=== PATIENT | male | born 1960 | race American Indian/Alaskan Native ===

== ENCOUNTER 2022-03-18 10:54 | Inpatient (IN) | payer OTHER ==
--- NOTE | 2022-03-18 11:42 | XRay Report ---
CHEST 2 VIEWS INDICATION: weakness. COMPARISON: none FINDINGS: Support devices: None. Heart: Within normal limits. Lungs/pleura: No acute air space or interstitial disease. No pleural abnormality or pneumothorax. Additional findings: None. IMPRESSION: No acute findings. Signer Name: Tyrone Hinds Jr, MD Signed: 03/18/2022 11:38 AM Workstation Name: [id number]
--- NOTE | 2022-03-18 12:12 | Cat Scan Report ---
CT HEAD WITHOUT CONTRAST INDICATION / CLINICAL INFORMATION: uni lateral weakness. Patient fell in bathroom due to total left- sided weakness. TECHNIQUE: Axial imaging performed from the skull apex through the skull base without the use of cont rast. Sagittal and coronal reformatted images. All CT scans at this location are performed using CT dose reduction for ALARA by means of automated exposure control. COMPARISON: None available. FINDINGS: CEREBRAL PARENCHYMA: No acute parenchymal abnormality is identified. There is mild to moderate hypoat tenuation throughout the white matter consistent with chronic small vessel disease. No chronic infarc t is identified. HEMORRHAGE: None. EXTRA-AXIAL SPACES: Normal in size and morphology for the patient's age. VENTRICULAR SYSTEM: Normal in size and morphology for the patient's age. MIDLINE SHIFT OR HERNIATION: None. CEREBELLUM / BRAINSTEM: No significant abnormality. CALVARIUM: No significant abnormality. ORBITS: Normal as visualized. PARANASAL SINUSES / MASTOID AIR CELLS: Normal as visualized. SOFT TISSUES of HEAD: No significant abnormality. ADDITIONAL FINDINGS: None. IMPRESSION: No acute intracranial abnormality. Chronic white matter changes as described. Signer Name: Tyrone Hinds Jr, MD Signed: 03/18/2022 12:07 PM Workstation Name: [id number]
[2022-03-18 13:01] LABS: Hematocrit 48.8 % (35.5-45.6); Hemoglobin 15.3 gm/dl (11.8-15.2); Mean Corpuscular HGB Conc 31 % (32-34); Mean Corpuscular Volume 84 fl (84-94); Platelet Count 174 K/mm3 (140-440); Red Blood Count 5.79 M/mm3 (3.65-5.03); Red Cell Distribution Width 16.3 % (13.2-15.2)
[2022-03-18 13:20] LABS: INR 0.89 (0.87-1.13)
[2022-03-18 13:21] LABS: Partial Thromboplastin Time 27.5 Sec. (24.2-36.6)
[2022-03-18 13:27] LABS: Alanine Aminotransferase 44 units/L (7-56); Albumin 4.6 g/dL (3.9-5); BUN/Creatinine Ratio 7; Blood Urea Nitrogen 8 mg/dL (9-20); Calcium 9.9 mg/dL (8.4-10.2); Hemolysis Index 3
[2022-03-18] MEDS ORDERED: ASPIRIN 325 MG TAB PO ONE (14:04)
--- NOTE | 2022-03-18 14:29 | Emergency Department Report ---
HPI - General Chief Complaint: Neuro Symptoms/Deficit Time Seen by Provider: 03/18/22 13:57 - HPI HPI: Room 3 The patient is a 61-year-old male present with a chief complaint of left-sided weakness. Patient states his last known well time was the evening of 03/15/2022 when he went to bed in his usual state of health. The patient states he awakened the following morning with diffuse weakness but greatest on the left side. Patient denies dysarthria or dysphagia. Patient admits to falling more than once secondary to the weakness but not losing consciousness. Patient denies paresthesia. ED Past Medical Hx - Past Medical History Previous Medical History?: Yes Hx Hypertension: Yes - Surgical History Past Surgical History?: No - Family History Family history: no significant - Social History Smoking Status: Current Every Day Smoker (1 pack/day) Substance Use Type: None (Denies illicit drug use), Alcohol (Sixpack of beer daily) ED Review of Systems ROS: Stated complaint: LT SIDE BODY WEAK Other details as noted in HPI Constitutional: no symptoms reported Eyes: denies: eye pain ENT: denies: throat pain Respiratory: no symptoms reported Cardiovascular: denies: chest pain Endocrine: no symptoms reported Gastrointestinal: denies: abdominal pain Genitourinary: denies: testicular pain Musculoskeletal: denies: back pain Neurological: weakness, abnormal gait. denies: headache, paresthesias Physical Exam - Physical Exam Vital Signs: Vital Signs 03/18/22 10:58 Temperature 97.9 F Pulse Rate 92 H Respiratory 16 Rate Blood Pressure 190/118 [Left] O2 Sat by Pulse 100 Oximetry Physical Exam: GENERAL: The patient is well-developed well-nourished male lying on stretcher not appearing to be in acute distress. [] HEENT: Normocephalic. Atraumatic. Extraocular motions are intact. Patient has moist mucous membranes. NECK: Supple. Trachea midline CHEST/LUNGS: Clear to auscultation. There is no respiratory distress noted. HEART/CARDIOVASCULAR: Regular. There is no tachycardia. There is no gallop rub or murmur. ABDOMEN: Abdomen is soft, nontender. Patient has normal bowel sounds. There is no abdominal distention. SKIN: There is no rash. There is no edema. There is no diaphoresis. NEURO: The patient is awake, alert, and oriented. The patient is cooperative. Cranial nerves II through XII grossly intact with exception of cranial nerve XI on the left. Patient is unable to hold left lower extremity at 30 degree angle for 5-second count without drift. Patient is able to hold left upper extremity at 45 degree angle for 10-second count with minimal drift. The patient has normal speech. Normal sensation to light touch throughout. GCS 15. NIHSS= 2 MUSCULOSKELETAL: There is no evidence of acute injury. ED Course Vital Signs 03/18/22 10:58 Temperature 97.9 F Pulse Rate 92 H Respiratory 16 Rate Blood Pressure 190/118 [Left] O2 Sat by Pulse 100 Oximetry ED Medical Decision Making - Lab Data Result diagrams: 03/18/22 12:16 03/18/22 12:16 Laboratory Tests 03/18/22 03/18/22 03/18/22 12:16 12:16 12:16 WBC 8.7 RBC 5.79 H Hgb 15.3 H Hct 48.8 H MCV 84 MCH 26 L MCHC 31 L RDW 16.3 H Plt Count 174 PT 13.0 INR 0.89 APTT 27.5 Sodium 133 L Potassium 3.8 Chloride 92.7 L Carbon Dioxide 21 L Anion Gap 23 BUN 8 L Creatinine 1.1 Estimated GFR > 60 BUN/Creatinine Ratio 7 Glucose 80 Calcium 9.9 Total Bilirubin 0.70 AST 73 H ALT 44 Alkaline Phosphatase 67 Troponin T < 0.010 Total Protein 7.8 Albumin 4.6 Albumin/Globulin Ratio 1.4 Lipase 31 - EKG Data -: EKG Interpreted by Me EKG shows normal: sinus rhythm, axis Rate: normal - EKG Data When compared to previous EKG there are: previous EKG unavailable Interpretation: nonspecific ST-T wave chinyere, LVH - Radiology Data Radiology results: report reviewed (CT head, chest x-ray), image reviewed (CT head, chest x-ray) interpreted by me: Chest x-ray-no definite focal infiltrates, no pneumothorax [facility] [address] [place] [address] Cat Scan Report Signed Patient: CLIFF JAMES MR#: [id number] : 1960 Acct:[id number] Age/Sex: 61 / M ADM Date: 03/18/22 Loc: ED Attending Dr: Ordering Physician: JUHI CHAUDHARI Date of Service: 03/18/22 Procedure(s): CT head/brain wo con Accession Number(s): [id number] cc: JUHI CHAUDHARI CT HEAD WITHOUT CONTRAST INDICATION / CLINICAL INFORMATION: uni lateral weakness. Patient fell in bathroom due to total left-sided weakness. TECHNIQUE: Axial imaging performed from the skull apex through the skull base without the use of contrast. Sagittal and coronal reformatted images. All CT scans at this location are performed using CT dose reduction for ALARA by means of automated exposure control. COMPARISON: None available. FINDINGS: CEREBRAL PARENCHYMA: No acute parenchymal abnormality is identified. There is mild to moderate hypoattenuation throughout the white matter consistent with chronic small vessel disease. No chronic infarct is identified. HEMORRHAGE: None. EXTRA- AXIAL SPACES: Normal in size and morphology for the patient's age. VENTRICULAR SYSTEM: Normal in size and morphology for the patient's age. MIDLINE SHIFT OR HERNIATION: None. CEREBELLUM / BRAINSTEM: No significant abnormality. CALVARIUM: No significant abnormality. ORBITS: Normal as visualized. PARANASAL SINUSES / MASTOID AIR CELLS: Normal as visualized. SOFT TISSUES of HEAD: No significant abnormality. ADDITIONAL FINDINGS: None. IMPRESSION: No acute intracranial abnormality. Chronic white matter changes as described. Signer Name: Tyrone Hinds Jr, MD Signed: 03/18/2022 12:07 PM Workstation Name: [id number] Transcribed By: TTR Dictated By: TYRONE HINDS JR, MD Electronically Authenticated By: TYRONE HINDS JR, MD Signed Date/Time: 03/18/22 120 DD/ 1205 [facility] [address] [place] [address] XRay Report Signed Patient: CLIFF JAMES MR#: [id number] : 1960 Acct:[id number] Age/Sex: 61 / M ADM Date: 03/18/22 Loc: ED Attending Dr: Ordering Physician: JUHI CHAUDHARI Date of Service: 03/18/22 Procedure(s): XR chest routine 2V Accession Number(s): [id number] cc: JUHI CHAUDHARI Fluoro Time In Minutes: CHEST 2 VIEWS INDICATION: weakness. COMPARISON: none FINDINGS: Support devices: None. Heart: Within normal limits. Lungs/pleura: No acute air space or interstitial disease. No pleural abnormality or pneumothorax. Additional findings: None. IMPRESSION: No acute findings. Signer Name: Tyrone Hinds Jr, MD Signed: 03/18/2022 11:38 AM Workstation Name: [id number] Transcribed By: TTR Dictated By: TYRONE HINDS JR, MD Electronically Authenticated By: TYRONE HINDS JR, MD Signed Date/Time: 03/18/221137 DD/ 37 TD/TT: - Differential Diagnosis CVA Critical care attestation.: If time is entered above; I have spent that time in minutes in the direct care of this critically ill patient, excluding procedure time. ED Disposition Clinical Impression: Stroke Disposition: 09 ADMITTED INPATIENT Is pt being admited?: Yes Does the pt Need Aspirin: Yes Condition: Fair Time of Disposition: 14:38 (Care transferred to hospitalist (Dr. Hurst))
--- NOTE | 2022-03-18 15:56 | History and Physical Report ---
History of Present Illness Chief complaint: My left side is weak History of present illness: 61 YO Male with Nicotine Dependence, HTN, ETOH Dependence, Medication Noncompliance presents ED for evaluation. Patient reports "my left side is weak and is not getting better". Patient states that he was in his usual state of health and experienced a sudden onset of left arm and leg weakness around 1800 hrs. on 03/15/2022. Patient states that while ambulating to the bathroom his left side felt weak. Patient has experienced difficulty with ambulating and lifting objects in his left hand since that time. Patient symptoms have not gotten better since the onset. Patient family encourage patient to seek medical care. Patient transported to [facility] via private vehicle for further care and evaluation of the aforementioned symptoms. The patient was seen and evaluated in the emergency department. All lab and imaging studies reviewed. Patient was found to have a focal neurologic deficit with clinical symptoms consistent with CVA. A code stroke was called. The patient was admitted to medical floor and initiated on CVA protocol. Patient denies fever, chills, chest pain, palpitation, productive cough, skin rash, recent contact, known exposure to COVID-19. No prior admission for review. No medication listed at time of admission for reconciliation. Advanced care planning conducted in ED. Past History Past Medical History: hypertension, other (See HPI) Past Surgical History: No surgical history, Other (Reviewed) Social history: smoking, alcohol abuse Family history: hypertension Medications and Allergies Allergies Allergy/AdvReac Type Severity Reaction Status Date / Time No Known Allergies Allergy Verified 03/18/22 10:58 Review of Systems Constitutional: no weight loss, no weight gain, no fever, no chills Ears, nose, mouth and throat: no ear pain, no ear discharge, no tinnitis, no decreased hearing, no nose pain, no nasal congestion Cardiovascular: no chest pain, no orthopnea, no rapid/irregular heart beat, no edema Respiratory: no cough, no excessive sputum Gastrointestinal: no abdominal pain, no vomiting, no constipation, no change in bowel habits, no hematemesis Genitourinary Male: no dysuria, no hematuria, no discharge, no urinary frequency, no nocturia, no incontinence Rectal: no pain, no incontinence, no bleeding Musculoskeletal: no neck stiffness, no shooting arm pain, no low back pain, no leg numbness/tingling Integumentary: no rash, no pruritis, no sores, no wounds Neurological: weakness, lack of coordination, balance difficulties, gait dysfunction, motor disturbance Psychiatric: no anxiety, no memory loss, no change in sleep habits, no sleep disturbances, no hypersomnia, no suicidal ideation Endocrine: no cold intolerance, no polyphagia, no polydipsia, no polyuria, no nocturia, no flushing Hematologic/Lymphatic: no easy bruising, no lymphedema Allergic/Immunologic: no urticaria, no allergic rhinitis, no anaphylaxis, no angioedema Exam - Constitutional Vitals: Temp Pulse Resp BP Pulse Ox 97.9 F 74 11 L 217/132 97 03/18/22 10:58 03/18/22 15:49 03/18/22 15:31 03/18/22 15:31 03/18/22 15:31 General appearance: Present: no acute distress, well-nourished - EENT Eyes: Present: PERRL ENT: hearing intact, clear oral mucosa - Neck Neck: Present: supple, normal ROM - Respiratory Respiratory effort: normal Respiratory: bilateral: CTA - Cardiovascular Heart Sounds: Present: S1 & S2. Absent: rub, click - Extremities Extremities: pulses symmetrical, No edema Peripheral Pulses: within normal limits - Abdominal General gastrointestinal: Present: soft, non-tender, non-distended, normal bowel sounds Male genitourinary: Present: normal - Integumentary Integumentary: Present: clear, warm, dry - Musculoskeletal Musculoskeletal: left sided weakness - Psychiatric Psychiatric: appropriate mood/affect, intact judgment & insight - Neurologic Neurologic: CNII-XII intact, moves all extremities, no gait normal HEART Score - HEART Score Troponin: Troponin T < 0.010 ng/mL (0.00-0.029) 03/18/22 12:16 Results - Labs CBC & Chem 7: 03/18/22 12:16 03/18/22 12:16 Labs: Abnormal lab results 03/18/22 03/18/22 Range/Units 12:16 12:16 RBC 5.79 H (3.65-5.03) M/mm3 Hgb 15.3 H (11.8-15.2) gm/dl Hct 48.8 H (35.5-45.6) % MCH 26 L (28-32) pg MCHC 31 L (32-34) % RDW 16.3 H (13.2-15.2) % Sodium 133 L (137-145) mmol/L Chloride 92.7 L (98-107) mmol/L Carbon Dioxide 21 L (22-30) mmol/L BUN 8 L (9-20) mg/dL AST 73 H (5-40) units/L Assessment and Plan - Patient Problems (1) CVA (cerebral vascular accident) Current Visit: Yes Status: Acute Plan to address problem: CVA protocol: CT scan head, seizure precautions, aspiration precautions, neuro check, carotid Doppler, echocardiogram, physical therapy consulted, Occupational Therapy consulted, speech therapy consulted. Antiplatelet therapy, lipid panel, statin therapy. (2) Hypertensive emergency Current Visit: Yes Status: Acute Plan to address problem: Monitor blood pressure every shift. IV hydralazine every 6 hours as needed to maintain blood pressure between 180-200 mmHg. Permissive hypertension overni ght. (3) Noncompliance with medication regimen Current Visit: Yes Status: Acute Plan to address problem: Patient counseled. Patient acknowledges understanding instructions. (4) Nicotine dependence Current Visit: Yes Status: Acute Qualifiers: Nicotine product type: cigarettes Substance use status: in withdrawal Qualified Code(s): F17.213 - Nicotine dependence, cigarettes, with withdrawal Plan to address problem: Smoking cessation counseling, supportive care, behavior change counseling, +15 minutes. (5) Alcohol dependence Current Visit: Yes Status: Acute Plan to address problem: CIWA protocol: Thiamine, folic acid, multivitamin daily. (6) DVT prophylaxis Current Visit: Yes Status: Acute Plan to address problem: SCD to bilateral lower extremities while in bed (7) Advance care planning Current Visit: Yes Status: Acute Plan to address problem: Disease education conducted, care plan discussed, diagnoses discussed, prognosis discussed, patient is full code. Patient acknowledges understanding and agreement with care plan, +30 minutes. (8) Preventative health care Current Visit: Yes Status: Acute Plan to address problem: Patient counseled regarding risk factor reduction, abstinence from alcohol and cigarette smoking. Balanced diet. Outpatient follow-up with primary care physician for all age and risk factor related screening test.
[2022-03-18 16:17] LABS: Bilirubin,Urine NEG (Negative); Blood,Urine MOD (Negative); Color,Urine Yellow (Yellow); Hyaline Casts,Urine 3 /LPF; Mucus,Urine FEW /HPF
[2022-03-18 16:20] LABS: WBC,Urine < 1.0 /HPF (0.0-6.0)
[2022-03-18] MEDS ORDERED: METOCLOPRAMIDE 10 MG TAB PO PRN (16:53)
[2022-03-18] MEDS ORDERED: PROMETHAZINE 25 MG RECT SUPP PR PRN (16:53)
[2022-03-18] MEDS ORDERED: MAGNESIUM HYDROXIDE (MOM) ORAL LIQD UDC PO PRN (16:53)
[2022-03-18] MEDS ORDERED: oxyCODONE /ACETAMINOPHEN 5-325MG TAB PO PRN (16:53)
[2022-03-18] MEDS ORDERED: HYDROmorphone 1 MG/1 ML INJ IV PRN (16:53)
[2022-03-18] MEDS ORDERED: ONDANSETRON 4 MG/2 ML INJ IV PRN (16:53)
[2022-03-18] MEDS ORDERED: ACETAMINOPHEN 325 MG TAB PO PRN (16:53)
[2022-03-18] MEDS ORDERED: cloNIDine 0.2 MG TAB PO ONE (17:00)
[2022-03-18] MEDS ORDERED: THIAMINE 100 MG TAB PO ONE (17:01)
[2022-03-18] MEDS ORDERED: MULTIVITAMINS ,THERAPEUTIC TAB PO ONE (17:01)
[2022-03-18] MEDS ORDERED: LORazepam 2 MG/ML VIAL IV PRN (17:01)
[2022-03-18] MEDS: hydrALAZINE 20 MG/1 ML INJ IV PRN (20:15)
[2022-03-19] MEDS: hydrALAZINE 20 MG/1 ML INJ IV PRN ×2 (02:18→10:11)
[2022-03-19] MEDS: FOLIC ACID 1 MG TAB PO SCH (09:32)
[2022-03-19] MEDS: ASPIRIN 325 MG TAB PO SCH (09:33)
--- NOTE | 2022-03-19 09:58 | Progress Note ---
Assessment and Plan Assessment and plan: --Possible acute CVA (cerebral vascular accident) Current Visit: Yes Status: Acute CVA protocol: CT scan head, seizure precautions, aspiration precautions, neuro check, carotid Doppler, echocardiogram, physical therapy consulted, Occupational Therapy consulted, speech therapy consulted. Antiplatelet therapy, lipid panel, statin therapy. MRI brain tomorrow Neurology consult if needed -- Hypertensive emergency Monitor blood pressure every shift. IV hydralazine every 6 hours as needed to maintain blood pressure around 170 systolic Permissive hypertension overnight. Continue current antihypertensives -- Noncompliance with medication regimen Patient counseled. Patient acknowledges understanding instructions. -- Nicotine dependence Smoking cessation counseling, supportive care, behavior change counseling, +15 minutes. --Alcohol dependence [facility] protocol: Thiamine, folic acid, multivitamin daily. -- DVT prophylaxis SCD to bilateral lower extremities while in bed --Advance care planning Disease education conducted, care plan discussed, diagnoses discussed, Patient acknowledges understanding and agreement with care plan, +30 minutes. prognosis discussed, patient is full code. --Preventative health care Patient counseled regarding risk factor reduction, abstinence from alcohol and cigarette smoking. Balanced diet. Outpatient follow-up with primary care physician for all age and risk factor related screening test. We will closely monitor the patient and adjust management as needed Plan of care reviewed with the patient and his nurse History Interval history: I have seen and examined the patient at the bedside Patient's chart and medications reviewed Patient was admitted with left-sided body weakness Patient has malignant hypertension Vital signs noted Hospitalist Physical - Constitutional Vitals: Temp Pulse Resp BP Pulse Ox 98.3 F 61 20 162/86 97 03/19/22 04:28 03/19/22 04:28 03/19/22 09:44 03/19/22 04:28 03/19/22 09:44 General appearance: Present: mild distress, well-nourished - EENT Eyes: Present: PERRL, EOM intact - Neck Neck: Present: supple, normal ROM - Respiratory Respiratory effort: normal Respiratory: bilateral: diminished, negative: rales, rhonchi, wheezing - Cardiovascular Rhythm: regular Heart Sounds: Present: S1 & S2 - Extremities Extremities: no ischemia, No edema - Abdominal General gastrointestinal: soft, non-tender, non-distended, normal bowel sounds - Integumentary Integumentary: Present: clear, warm - Psychiatric Psychiatric: appropriate mood/affect, cooperative - Neurologic Neurologic: CNII-XII intact, moves all extremities HEART Score - HEART Score Troponin: Troponin T < 0.010 ng/mL (0.00-0.029) 03/18/22 12:16 Results - Labs CBC & Chem 7: 03/18/22 12:16 03/18/22 12:16 Labs: Laboratory Last Values WBC 8.7 K/mm3 (4.5-11.0) 03/18/22 12:16 RBC 5.79 M/mm3 (3.65-5.03) H 03/18/22 12:16 Hgb 15.3 gm/dl (11.8-15.2) H 03/18/22 12:16 Hct 48.8 % (35.5-45.6) H 03/18/22 12:16 MCV 84 fl (84-94) 03/18/22 12:16 MCH 26 pg (28-32) L 03/18/22 12:16 MCHC 31 % (32-34) L 03/18/22 12:16 RDW 16.3 % (13.2-15.2) H 03/18/22 12:16 Plt Count 174 K/mm3 (140-440) 03/18/22 12:16 PT 13.0 Sec. (12.2-14.9) 03/18/22 12:16 INR 0.89 (0.87-1.13) 03/18/22 12:16 APTT 27.5 Sec. (24.2-36.6) 03/18/22 12:16 Sodium 133 mmol/L (137-145) L 03/18/22 12:16 Potassium 3.8 mmol/L (3.6-5.0) 03/18/22 12:16 Chloride 92.7 mmol/L (98-107) L 03/18/22 12:16 Carbon Dioxide 21 mmol/L (22-30) L 03/18/22 12:16 Anion Gap 23 mmol/L 03/18/22 12:16 BUN 8 mg/dL (9-20) L 03/18/22 12:16 Creatinine 1.1 mg/dL (0.8-1.3) 03/18/22 12:16 Estimated GFR > 60 ml/min 03/18/22 12:16 BUN/Creatinine Ratio 7 % 03/18/22 12:16 Glucose 80 mg/dL (75-100) 03/18/22 12:16 Calcium 9.9 mg/dL (8.4-10.2) 03/18/22 12:16 Total Bilirubin 0.70 mg/dL (0.1-1.2) 03/18/22 12:16 AST 73 units/L (5-40) H 03/18/22 12:16 ALT 44 units/L (7-56) 03/18/22 12:16 Alkaline Phosphatase 67 units/L (35-129) 03/18/22 12:16 Troponin T < 0.010 ng/mL (0.00-0.029) 03/18/22 12:16 Total Protein 7.8 g/dL (6.3-8.2) 03/18/22 12:16 Albumin 4.6 g/dL (3.9-5) 03/18/22 12:16 Albumin/Globulin Ratio 1.4 % 03/18/22 12:16 Lipase 31 units/L (13-60) 03/18/22 12:16 Urine Color Yellow (Yellow) 03/18/22 Unknown Urine Turbidity Clear (Clear) 03/18/22 Unknown Urine pH 5.0 (5.0-7.0) 03/18/22 Unknown Ur Specific [place] 1.012 (1.003-1.030) 03/18/22 Unknown Urine Protein 30 mg/dl mg/dL (Negative) 03/18/22 Unknown Urine Glucose (UA) Neg mg/dL (Negative) 03/18/22 Unknown Urine Ketones Tr mg/dL (Negative) 03/18/22 Unknown Urine Blood Mod (Negative) 03/18/22 Unknown Urine Nitrite Neg (Negative) 03/18/22 Unknown Urine Bilirubin Neg (Negative) 03/18/22 Unknown Urine Urobilinogen 2.0 mg/dL (<2.0) 03/18/22 Unknown Ur Leukocyte Esterase Neg (Negative) 03/18/22 Unknown Urine WBC (Auto) < 1.0 /HPF (0.0-6.0) 03/18/22 Unknown Urine RBC (Auto) 2.0 /HPF (0.0-6.0) 03/18/22 Unknown U Epithel Cells (Auto) < 1.0 /HPF (0-13.0) 03/18/22 Unknown Hyaline Casts 3 /LPF 03/18/22 Unknown Urine Mucus Few /HPF 03/18/22 Unknown Petty/IV: Voiding Method Urinal Active Medications - Current Medications Current Medications: Generic Name Dose Route Start Last Admin Trade Name Freq PRN Reason Stop Dose Admin Acetaminophen 650 mg 03/18/22 16:53 03/18/22 22:22 Acetaminophen 325 Mg Tab PO 650 mg Q4H PRN Administration Pain, Mild (1-3) Aspirin 325 mg 03/19/22 10:00 03/19/22 09:33 Aspirin 325 Mg Tab PO 325 mg QDAY KAMLA Administration Atorvastatin Calcium 40 mg 03/18/22 22:00 03/18/22 22:22 Atorvastatin 40 Mg Tab PO 40 mg QHS KAMLA Administration Bisacodyl 10 mg 03/18/22 16:53 Bisacodyl 10 Mg Rect Supp WI QDAY PRN Constipation Folic Acid 1 mg 03/19/22 10:00 03/19/22 09:32 Folic Acid 1 Mg Tab PO 1 mg QDAY KAMLA Administration Hydralazine HCl 10 mg 03/18/22 16:59 03/19/22 02:18 Hydralazine 20 Mg/1 Ml Inj IV 10 mg Q6HR PRN Administration Hypertension Hydromorphone HCl 0.5 mg 03/18/22 16:53 Hydromorphone 1 Mg/1 Ml Inj IV Q12H PRN Pain , Severe (7-10) Lorazepam 2 mg 03/18/22 17:01 Lorazepam 2 Mg/Ml Vial IV Q1HR PRN CIWA-Ar 8-15 Magnesium Hydroxide 30 ml 03/18/22 16:53 Magnesium Hydroxide (Mom) Oral Liqd Udc PO Q4H PRN Constipation Metoclopramide HCl 10 mg 03/18/22 16:53 Metoclopramide 10 Mg Tab PO Q6H PRN Nausea And Vomiting Ondansetron HCl 4 mg 03/18/22 16:53 Ondansetron 4 Mg/2 Ml Inj IV Q8H PRN Nausea And Vomiting Oxycodone/Acetaminophen 1 tab 03/18/22 16:53 Oxycodone /Acetaminophen 5-325mg Tab PO Q16H PRN Pain, Moderate (4-6) Promethazine HCl 25 mg 03/18/22 16:53 Promethazine 25 Mg Rect Supp WI Q6H PRN Nausea And Vomiting Sodium Chloride 10 ml 03/18/22 16:53 Sodium Chloride 0.9% 10 Ml Flush Syringe IV PRN PRN LINE FLUSH
--- NOTE | 2022-03-19 12:18 | Electrocardiograph Report ---
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 No previous ECG available for comparison Electronically Signed On 03-19-2022 12:18:17 EDT by Jeovany Simmons
[2022-03-20 00:48] LABS: Amphetamine Screen,Urine PRESUMPTIVE NEGATIVE; Benzodiazepines Screen,Urine PRESUMPTIVE NEGATIVE; Cannabinoid Screen,Urine PRESUMPTIVE NEGATIVE; Cocaine Screen,Urine PRESUMPTIVE NEGATIVE; Methadone Screen,Urine PRESUMPTIVE NEGATIVE; Opiate Screen,Urine PRESUMPTIVE NEGATIVE
[2022-03-20] MEDS: FOLIC ACID 1 MG TAB PO SCH (09:09)
[2022-03-20] MEDS: ASPIRIN 325 MG TAB PO SCH (09:09)
--- NOTE | 2022-03-20 12:18 | Magnetic Resonance Report ---
MRI BRAIN 03/20/2022 INDICATION / CLINICAL INFORMATION: Acute CVA. TECHNIQUE: Multiplanar, multisequence MR images of the brain were obtained. COMPARISON: None available. FINDINGS: BRAIN / INTRACRANIAL CONTENTS: Unenhanced MR images of the brain were obtained. There is focal area of restricted diffusion located in the right centrum semiovale, over a range of a pproximately 2.3 cm. Increased diffusion weighted signal and decreased ADC signal is present, associa july with T2-weighted signal change. This is superimposed on prominent diffuse chronic microangiopathic change, with increased T2-weighted signal present throughout the periventricular and deep white matter of cerebral hemispheres. There is no evidence of hemorrhage or mass. There are no abnormal extra-axial fluid collection. EXTRACRANIAL: Unremarkable CRANIOCERVICAL JUNCTION: No significant abnormality. VASCULAR FLOW-VOIDS: No significant abnormality. IMPRESSION: Acute right subcortical infarct. Extensive chronic microangiopathic change. Signer Name: Sai Mina MD Signed: 03/20/2022 12:14 PM Workstation Name: [id number]
[2022-03-20] MEDS: hydrALAZINE 20 MG/1 ML INJ IV PRN ×2 (13:00→22:20)
--- NOTE | 2022-03-20 20:36 | Progress Note ---
Assessment and Plan Assessment and plan: -- Acute subcortical stroke Current Visit: Yes Status: Acute Not a candidate for tPA Continue aspirin and statin PT OT rehabilitation CVA protocol: CT scan head, seizure precautions, aspiration precautions, Check CTA head, CTA neck, echocardiogram DC planning per case management -- Hypertensive emergency; Blood pressures in the higher range due to stroke protocol permissive hypertension first 24 to 48 hours Now we will start antihypertensives, closely monitor blood pressures -- Noncompliance with medication regimen Patient counseled. Patient acknowledges understanding instructions. -- Nicotine dependence Smoking cessation counseling, supportive care, behavior change counseling, +15 minutes. --Alcohol dependence [facility] protocol: Thiamine, folic acid, multivitamin daily. -- DVT prophylaxis SCD to bilateral lower extremities while in bed --Advance care planning Disease education conducted, care plan discussed, diagnoses discussed, Patient acknowledges understanding and agreement with care plan, +30 minutes. prognosis discussed, patient is full code. --Preventative health care Patient counseled regarding risk factor reduction, abstinence from alcohol and cigarette smoking. Balanced diet. Outpatient follow-up with primary care physician for all age and risk factor related screening test. We will closely monitor the patient and adjust management as needed Plan of care reviewed with the patient and his nurse 03/20/2022; acute subcortical stroke on MRI History Interval history: I have seen and examined the patient at the bedside Patient's chart and medications reviewed Patient is on [facility] protocol Vital signs noted Hospitalist Physical - Constitutional Vitals: Temp Pulse Resp BP Pulse Ox 68.8 F L 73 20 169/108 99 03/20/22 14:54 03/20/22 14:55 03/20/22 14:55 03/20/22 14:55 03/20/22 14:55 General appearance: Present: mild distress, well-nourished - EENT Eyes: Present: PERRL, EOM intact - Neck Neck: Present: supple, normal ROM - Respiratory Respiratory effort: normal Respiratory: bilateral: diminished, negative: rales, rhonchi, wheezing - Cardiovascular Rhythm: regular Heart Sounds: Present: S1 & S2 - Extremities Extremities: no ischemia, No edema - Abdominal General gastrointestinal: soft, non-tender, non-distended, normal bowel sounds - Integumentary Integumentary: Present: clear, warm - Psychiatric Psychiatric: appropriate mood/affect, cooperative - Neurologic Neurologic: moves all extremities, other (Residual weakness) HEART Score - HEART Score Troponin: Troponin T < 0.010 ng/mL (0.00-0.029) 03/18/22 12:16 Results - Labs CBC & Chem 7: 03/18/22 12:16 03/21/22 05:43 Labs: Laboratory Last Values WBC 8.7 K/mm3 (4.5-11.0) 03/18/22 12:16 RBC 5.79 M/mm3 (3.65-5.03) H 03/18/22 12:16 Hgb 15.3 gm/dl (11.8-15.2) H 03/18/22 12:16 Hct 48.8 % (35.5-45.6) H 03/18/22 12:16 MCV 84 fl (84-94) 03/18/22 12:16 MCH 26 pg (28-32) L 03/18/22 12:16 MCHC 31 % (32-34) L 03/18/22 12:16 RDW 16.3 % (13.2-15.2) H 03/18/22 12:16 Plt Count 174 K/mm3 (140-440) 03/18/22 12:16 PT 13.0 Sec. (12.2-14.9) 03/18/22 12:16 INR 0.89 (0.87-1.13) 03/18/22 12:16 APTT 27.5 Sec. (24.2-36.6) 03/18/22 12:16 Sodium 133 mmol/L (137-145) L 03/18/22 12:16 Potassium 3.8 mmol/L (3.6-5.0) 03/18/22 12:16 Chloride 92.7 mmol/L (98-107) L 03/18/22 12:16 Carbon Dioxide 21 mmol/L (22-30) L 03/18/22 12:16 Anion Gap 23 mmol/L 03/18/22 12:16 BUN 8 mg/dL (9-20) L 03/18/22 12:16 Creatinine 1.1 mg/dL (0.8-1.3) 03/18/22 12:16 Estimated GFR > 60 ml/min 03/18/22 12:16 BUN/Creatinine Ratio 7 % 03/18/22 12:16 Glucose 80 mg/dL (75-100) 03/18/22 12:16 Calcium 9.9 mg/dL (8.4-10.2) 03/18/22 12:16 Total Bilirubin 0.70 mg/dL (0.1-1.2) 03/18/22 12:16 AST 73 units/L (5-40) H 03/18/22 12:16 ALT 44 units/L (7-56) 03/18/22 12:16 Alkaline Phosphatase 67 units/L (35-129) 03/18/22 12:16 Troponin T < 0.010 ng/mL (0.00-0.029) 03/18/22 12:16 Total Protein 7.8 g/dL (6.3-8.2) 03/18/22 12:16 Albumin 4.6 g/dL (3.9-5) 03/18/22 12:16 Albumin/Globulin Ratio 1.4 % 03/18/22 12:16 Lipase 31 units/L (13-60) 03/18/22 12:16 Urine Color Yellow (Yellow) 03/18/22 Unknown Urine Turbidity Clear (Clear) 03/18/22 Unknown Urine pH 5.0 (5.0-7.0) 03/18/22 Unknown Ur Specific [place] 1.012 (1.003-1.030) 03/18/22 Unknown Urine Protein 30 mg/dl mg/dL (Negative) 03/18/22 Unknown Urine Glucose (UA) Neg mg/dL (Negative) 03/18/22 Unknown Urine Ketones Tr mg/dL (Negative) 03/18/22 Unknown Urine Blood Mod (Negative) 03/18/22 Unknown Urine Nitrite Neg (Negative) 03/18/22 Unknown Urine Bilirubin Neg (Negative) 03/18/22 Unknown Urine Urobilinogen 2.0 mg/dL (<2.0) 03/18/22 Unknown Ur Leukocyte Esterase Neg (Negative) 03/18/22 Unknown Urine WBC (Auto) < 1.0 /HPF (0.0-6.0) 03/18/22 Unknown Urine RBC (Auto) 2.0 /HPF (0.0-6.0) 03/18/22 Unknown U Epithel Cells (Auto) < 1.0 /HPF (0-13.0) 03/18/22 Unknown Hyaline Casts 3 /LPF 03/18/22 Unknown Urine Mucus Few /HPF 03/18/22 Unknown Urine Opiates Screen Presumptive negative 03/20/22 00:20 Urine Methadone Screen Presumptive negative 03/20/22 00:20 Ur Barbiturates Screen Presumptive negative 03/20/22 00:20 Ur Phencyclidine Scrn Presumptive negative 03/20/22 00:20 Ur Amphetamines Screen Presumptive negative 03/20/22 00:20 U Benzodiazepines Scrn Presumptive negative 03/20/22 00:20 Urine Cocaine Screen Presumptive negative 03/20/22 00:20 U Marijuana (THC) Screen Presumptive negative 03/20/22 00:20 Drugs of Abuse Note Disclamer 03/20/22 00:20 Petty/IV: Voiding Method Urinal Active Medications - Current Medications Current Medications: Generic Name Dose Route Start Last Admin Trade Name Freq PRN Reason Stop Dose Admin Acetaminophen 650 mg 03/18/22 16:53 03/18/22 22:22 Acetaminophen 325 Mg Tab PO 650 mg Q4H PRN Administration Pain, Mild (1-3) Aspirin 325 mg 03/19/22 10:00 03/20/22 09:09 Aspirin 325 Mg Tab PO 325 mg QDAY KAMLA Administration Atorvastatin Calcium 40 mg 03/18/22 22:00 03/19/22 21:45 Atorvastatin 40 Mg Tab PO 40 mg QHS KAMLA Administration Bisacodyl 10 mg 03/18/22 16:53 Bisacodyl 10 Mg Rect Supp [place] QDAY PRN Constipation Folic Acid 1 mg 03/19/22 10:00 03/20/22 09:09 Folic Acid 1 Mg Tab PO 1 mg QDAY KAMLA Administration Hydralazine HCl 10 mg 03/18/22 16:59 03/20/22 13:00 Hydralazine 20 Mg/1 Ml Inj IV 10 mg Q6HR PRN Administration Hypertension Hydromorphone HCl 0.5 mg 03/18/22 16:53 Hydromorphone 1 Mg/1 Ml Inj IV Q12H PRN Pain , Severe (7-10) Lorazepam 2 mg 03/18/22 17:01 Lorazepam 2 Mg/Ml Vial IV Q1HR PRN CIWA-Ar 8-15 Magnesium Hydroxide 30 ml 03/18/22 16:53 Magnesium Hydroxide (Mom) Oral Liqd Udc PO Q4H PRN Constipation Metoclopramide HCl 10 mg 03/18/22 16:53 Metoclopramide 10 Mg Tab PO Q6H PRN Nausea And Vomiting Ondansetron HCl 4 mg 03/18/22 16:53 Ondansetron 4 Mg/2 Ml Inj IV Q8H PRN Nausea And Vomiting Oxycodone/Acetaminophen 1 tab 03/18/22 16:53 Oxycodone /Acetaminophen 5-325mg Tab PO Q16H PRN Pain, Moderate (4-6) Promethazine HCl 25 mg 03/18/22 16:53 Promethazine 25 Mg Rect Supp [place] Q6H PRN Nausea And Vomiting Sodium Chloride 10 ml 03/18/22 16:53 03/20/22 09:09 Sodium Chloride 0.9% 10 Ml Flush Syringe IV 10 ml PRN PRN Administration LINE FLUSH
[2022-03-20] MEDS: ENOXAPARIN 40 MG/0.4 ML INJ SUB-Q SCH (22:22)
[2022-03-21 06:34] LABS: BUN/Creatinine Ratio 12; Blood Urea Nitrogen 13 mg/dL (9-20); Chol/HDL Ratio 2.81 %; HDL Cholesterol 83 mg/dL (40-59); Hemolysis Index 2; LDL Cholesterol,Direct 128 mg/dL (50-130)
--- NOTE | 2022-03-21 08:01 | Progress Note ---
Assessment and Plan Assessment and plan: -- Acute subcortical stroke Current Visit: Yes Status: Acute Not a candidate for tPA Continue aspirin and statin PT OT rehabilitation CVA protocol: CT scan head, seizure precautions, aspiration precautions, Check CTA head, CTA neck, echocardiogram DC planning per case management Neuro work-up so far: CT head without contrast :No acute intracranial abnormality, chronic white matter changes noted MRI brain; acute right subcortical infarct CTA neck, and carotid arteries no significant abnormality carotid bifurcation normal cervical internal carotid arteries no significant abnormalities CTA head; no significant abnormality Echocardiogram; LVEF 50 to 55% moderate concentric LVH bubble study does not demonstrate PFO neuro work-up so far -- Hypertensive emergency Uncontrolled blood pressures due to permissive hypertension per stroke protocol Will now resume antihypertensives closely monitor blood pressures As needed hydralazine -- Noncompliance with medication regimen Patient counseled. Patient acknowledges understanding instructions. -- Nicotine dependence Smoking cessation counseling, supportive care, behavior change counseling, +15 minutes. --Alcohol dependence [facility] protocol: Thiamine, folic acid, multivitamin daily. -- DVT prophylaxis SCD to bilateral lower extremities while in bed --Advance care planning Disease education conducted, care plan discussed, diagnoses discussed, Patient's diagnosis of acute stroke discussed in detail with the patient and with her patient's niece over the phone Treatment plan explained in detail, discharge planning per case management, pending PT OT evaluation Also discussed about the medications, uses and side effects Patient acknowledges understanding and agreement with care plan, +32 minutes. prognosis discussed, patient is full code. --Preventive health care Patient counseled regarding risk factor reduction, abstinence from alcohol and cigarette smoking. Cardiac diet. Compliance with medications diet and follow-up visits Early outpatient follow-up with primary care physician , neurologist Risk reduction with lifestyle changes, exercise as tolerated I spent 35 minutes counseling the patient We will closely monitor the patient and adjust management as needed Plan of care reviewed with the patient and his nurse 03/20/2022; acute subcortical stroke on MRI 03/21/22; CTA head and neck, echocardiogram, PT OT DC planning Uncontrolled blood pressures, will add additional antihypertensives Closely monitor History Interval history: I have seen and examined the patient at the bedside Patient's chart and medications reviewed Patient feels slightly better Blood pressures are uncontrolled Vital signs noted Hospitalist Physical - Constitutional Vitals: Temp Pulse Resp BP Pulse Ox 98.2 F 67 18 188/110 97 03/20/22 22:18 03/20/22 22:20 03/20/22 22:18 03/20/22 22:20 03/20/22 22:19 General appearance: Present: mild distress, well-nourished - EENT Eyes: Present: PERRL, EOM intact - Neck Neck: Present: supple, normal ROM - Respiratory Respiratory effort: normal Respiratory: bilateral: diminished, negative: rales, rhonchi, wheezing - Cardiovascular Rhythm: regular Heart Sounds: Present: S1 & S2 - Extremities Extremities: no ischemia, No edema - Abdominal General gastrointestinal: soft, non-tender, non-distended, normal bowel sounds - Integumentary Integumentary: Present: clear, warm - Psychiatric Psychiatric: appropriate mood/affect, cooperative - Neurologic Neurologic: other (Left-sided weakness) HEART Score - HEART Score Troponin: Troponin T < 0.010 ng/mL (0.00-0.029) 03/18/22 12:16 Results - Labs CBC & Chem 7: 03/18/22 12:16 03/21/22 05:43 Labs: Laboratory Last Values WBC 8.7 K/mm3 (4.5-11.0) 03/18/22 12:16 RBC 5.79 M/mm3 (3.65-5.03) H 03/18/22 12:16 Hgb 15.3 gm/dl (11.8-15.2) H 03/18/22 12:16 Hct 48.8 % (35.5-45.6) H 03/18/22 12:16 MCV 84 fl (84-94) 03/18/22 12:16 MCH 26 pg (28-32) L 03/18/22 12:16 MCHC 31 % (32-34) L 03/18/22 12:16 RDW 16.3 % (13.2-15.2) H 03/18/22 12:16 Plt Count 174 K/mm3 (140-440) 03/18/22 12:16 PT 13.0 Sec. (12.2-14.9) 03/18/22 12:16 INR 0.89 (0.87-1.13) 03/18/22 12:16 APTT 27.5 Sec. (24.2-36.6) 03/18/22 12:16 Sodium 134 mmol/L (137-145) L 03/21/22 05:43 Potassium 3.3 mmol/L (3.6-5.0) L 03/21/22 05:43 Chloride 96.6 mmol/L (98-107) L 03/21/22 05:43 Carbon Dioxide 23 mmol/L (22-30) 03/21/22 05:43 Anion Gap 18 mmol/L 03/21/22 05:43 BUN 13 mg/dL (9-20) 03/21/22 05:43 Creatinine 1.1 mg/dL (0.8-1.3) 03/21/22 05:43 Estimated GFR > 60 ml/min 03/21/22 05:43 BUN/Creatinine Ratio 12 % 03/21/22 05:43 Glucose 90 mg/dL (75-100) 03/21/22 05:43 Calcium 10.0 mg/dL (8.4-10.2) 03/21/22 05:43 Magnesium 1.90 mg/dL (1.7-2.3) 03/21/22 05:43 Total Bilirubin 0.70 mg/dL (0.1-1.2) 03/18/22 12:16 AST 73 units/L (5-40) H 03/18/22 12:16 ALT 44 units/L (7-56) 03/18/22 12:16 Alkaline Phosphatase 67 units/L (35-129) 03/18/22 12:16 Troponin T < 0.010 ng/mL (0.00-0.029) 03/18/22 12:16 Total Protein 7.8 g/dL (6.3-8.2) 03/18/22 12:16 Albumin 4.6 g/dL (3.9-5) 03/18/22 12:16 Albumin/Globulin Ratio 1.4 % 03/18/22 12:16 Triglycerides 100 mg/dL (2-149) 03/21/22 05:43 Cholesterol 234 mg/dL (50-199) H 03/21/22 05:43 LDL Cholesterol Direct 128 mg/dL (50-130) 03/21/22 05:43 HDL Cholesterol 83 mg/dL (40-59) H 03/21/22 05:43 Cholesterol/HDL Ratio 2.81 % 03/21/22 05:43 Lipase 31 units/L (13-60) 03/18/22 12:16 Urine Color Yellow (Yellow) 03/18/22 Unknown Urine Turbidity Clear (Clear) 03/18/22 Unknown Urine pH 5.0 (5.0-7.0) 03/18/22 Unknown Ur Specific [place] 1.012 (1.003-1.030) 03/18/22 Unknown Urine Protein 30 mg/dl mg/dL (Negative) 03/18/22 Unknown Urine Glucose (UA) Neg mg/dL (Negative) 03/18/22 Unknown Urine Ketones Tr mg/dL (Negative) 03/18/22 Unknown Urine Blood Mod (Negative) 03/18/22 Unknown Urine Nitrite Neg (Negative) 03/18/22 Unknown Urine Bilirubin Neg (Negative) 03/18/22 Unknown Urine Urobilinogen 2.0 mg/dL (<2.0) 03/18/22 Unknown Ur Leukocyte Esterase Neg (Negative) 03/18/22 Unknown Urine WBC (Auto) < 1.0 /HPF (0.0-6.0) 03/18/22 Unknown Urine RBC (Auto) 2.0 /HPF (0.0-6.0) 03/18/22 Unknown U Epithel Cells (Auto) < 1.0 /HPF (0-13.0) 03/18/22 Unknown Hyaline Casts 3 /LPF 03/18/22 Unknown Urine Mucus Few /HPF 03/18/22 Unknown Urine Opiates Screen Presumptive negative 03/20/22 00:20 Urine Methadone Screen Presumptive negative 03/20/22 00:20 Ur Barbiturates Screen Presumptive negative 03/20/22 00:20 Ur Phencyclidine Scrn Presumptive negative 03/20/22 00:20 Ur Amphetamines Screen Presumptive negative 03/20/22 00:20 U Benzodiazepines Scrn Presumptive negative 03/20/22 00:20 Urine Cocaine Screen Presumptive negative 03/20/22 00:20 U Marijuana (THC) Screen Presumptive negative 03/20/22 00:20 Drugs of Abuse Note Disclamer 03/20/22 00:20 Petty/IV: Voiding Method Urinal Active Medications - Current Medications Current Medications: Generic Name Dose Route Start Last Admin Trade Name Freq PRN Reason Stop Dose Admin Acetaminophen 650 mg 03/18/22 16:53 03/18/22 22:22 Acetaminophen 325 Mg Tab PO 650 mg Q4H PRN Administration Pain, Mild (1-3) Aspirin 325 mg 03/19/22 10:00 03/20/22 09:09 Aspirin 325 Mg Tab PO 325 mg QDAY [facility] Administration Atorvastatin Calcium 40 mg 03/18/22 22:00 03/20/22 22:21 Atorvastatin 40 Mg Tab PO 40 mg QHS KAMLA Administration Bisacodyl 10 mg 03/18/22 16:53 Bisacodyl 10 Mg Rect Supp [place] QDAY PRN Constipation Enoxaparin Sodium 40 mg 03/20/22 22:00 03/20/22 22:22 Enoxaparin 40 Mg/0.4 Ml Inj SUB-Q 40 mg QDAY@2200 [facility] Administration Protocol Folic Acid 1 mg 03/19/22 10:00 03/20/22 09:09 Folic Acid 1 Mg Tab PO 1 mg QDAY [facility] Administration Hydralazine HCl 10 mg 03/18/22 16:59 03/20/22 22:20 Hydralazine 20 Mg/1 Ml Inj IV 10 mg Q6HR PRN Administration Hypertension Hydromorphone HCl 0.5 mg 03/18/22 16:53 Hydromorphone 1 Mg/1 Ml Inj IV Q12H PRN Pain , Severe (7-10) Lorazepam 2 mg 03/18/22 17:01 Lorazepam 2 Mg/Ml Vial IV Q1HR PRN CIWA-Ar 8-15 Magnesium Hydroxide 30 ml 03/18/22 16:53 Magnesium Hydroxide (Mom) Oral Liqd Udc PO Q4H PRN Constipation Metoclopramide HCl 10 mg 03/18/22 16:53 Metoclopramide 10 Mg Tab PO Q6H PRN Nausea And Vomiting Ondansetron HCl 4 mg 03/18/22 16:53 Ondansetron 4 Mg/2 Ml Inj IV Q8H PRN Nausea And Vomiting Oxycodone/Acetaminophen 1 tab 03/18/22 16:53 Oxycodone /Acetaminophen 5-325mg Tab PO Q16H PRN Pain, Moderate (4-6) Promethazine HCl 25 mg 03/18/22 16:53 Promethazine 25 Mg Rect Supp [place] Q6H PRN Nausea And Vomiting Sodium Chloride 10 ml 03/18/22 16:53 03/20/22 22:22 Sodium Chloride 0.9% 10 Ml Flush Syringe IV 10 ml PRN PRN Administration LINE FLUSH
--- NOTE | 2022-03-21 09:33 | Cat Scan Report ---
CTA NECK WITH CONTRAST HISTORY: Stroke COMPARISON: None. TECHNIQUE: Routine CTA of the neck was performed. 3-D/MIP reformats were postprocessed. Percentage s tenosis is determined by direct quantitative measurements of diseased internal carotid artery diamete r compared with normal distal internal carotid artery reference segments or by criteria similar to NA SCET where applicable.All CT scans at this location are performed using CT dose reduction for ALARA b y means of automated exposure control CONTRAST: 100 ml of Omnipaque 350 FINDINGS: Aortic arch: No significant abnormality. Cervical vertebral arteries: Right vertebral artery: Origin normal; less than 50% narrowing of the proximal 1 cm of the right vert ebral artery; foraminal, extraspinal and intradural segments normal Left vertebral artery: Normal from its origin up to basilar formation Common carotid arteries: No significant abnormality. Carotid bifurcations: Normal bilaterally Cervical internal carotid arteries: No significant abnormality. Additional findings: None. IMPRESSION: 1. No significant abnormality. CTA HEAD WITH CONTRAST TECHNIQUE: Routine non-contrast CT Head, CTA of the head and post-contrast CT Head are performed. 3-D /MIP reformats postprocessed. All CT scans at this location are performed using CT dose reduction for ALARA by means of automated exposure control CONTRAST: 100 ml of Omnipaque 350 FINDINGS: CTA Head: Intracranial vertebral arteries: No significant abnormality. Basilar artery: No significant abnormality. Posterior cerebral arteries: No significant abnormality. Right posterior communicating artery continu es as right posterior cerebral artery Intracranial internal carotid arteries: Atherosclerotic disease with vascular calcification in the ca rotid siphons bilaterally with approximately 50% stenoses bilaterally Anterior cerebral arteries: Left anterior cerebral artery supplies both A2 segments Right anterior cerebral artery hypoplastic Middle cerebral arteries: No significant abnormality. Dural venous sinuses:Not optimally opacified. No significant abnormality. Additional findings: None. IMPRESSION: 1. No significant abnormality. Signer Name: Francine Duarte MD Signed: 03/21/2022 9:29 AM Workstation Name: [employer]
[2022-03-21] MEDS: hydrALAZINE 25 MG TAB PO SCH ×3 (09:59→21:16)
[2022-03-21] MEDS: FOLIC ACID 1 MG TAB PO SCH (09:59)
[2022-03-21] MEDS: ASPIRIN 325 MG TAB PO SCH (09:59)
[2022-03-21] MEDS ORDERED: hydrALAZINE 20 MG/1 ML INJ IV ONE (17:00)
[2022-03-21] MEDS ORDERED: POTASSIUM CHLORIDE ER 20 MEQ TAB PO ONE (18:26)
[2022-03-21] MEDS ORDERED: cloNIDine 0.1 MG TAB PO ONE (20:00)
[2022-03-21] MEDS: ENOXAPARIN 40 MG/0.4 ML INJ SUB-Q SCH (21:15)
[2022-03-21] MEDS: cloNIDine 0.1 MG TAB PO SCH (21:17)
[2022-03-21] MEDS: NIFEdipine XL 30 MG TAB PO SCH (21:18)
[2022-03-22] MEDS: hydrALAZINE 25 MG TAB PO SCH ×3 (06:02→21:07)
[2022-03-22] MEDS: ASPIRIN 325 MG TAB PO SCH (09:09)
[2022-03-22] MEDS: cloNIDine 0.1 MG TAB PO SCH ×2 (09:09→21:07)
[2022-03-22] MEDS: NIFEdipine XL 30 MG TAB PO SCH ×2 (09:09→21:06)
[2022-03-22] MEDS: FOLIC ACID 1 MG TAB PO SCH (09:09)
--- NOTE | 2022-03-22 20:11 | Progress Note ---
Assessment and Plan Assessment and plan: PT; evaluation noted and appreciated, recommend acute rehab OT; evaluation and recommendations noted and appreciated, recommend subacute rehab DC plan per case management Rehab placement -- Acute subcortical stroke Current Visit: Yes Status: Acute Not a candidate for tPA Continue aspirin and statin PT OT rehabilitation CVA protocol: CT scan head, seizure precautions, aspiration precautions, Check CTA head, CTA neck, echocardiogram DC planning per case management --left hemiplegia; Physical therapy, Occupational Therapy, rehabilitation Neuro work-up so far: CT head without contrast :No acute intracranial abnormality, chronic white matter changes noted MRI brain; acute right subcortical infarct CTA neck, and carotid arteries no significant abnormality carotid bifurcation normal cervical internal carotid arteries no significant abnormalities CTA head; no significant abnormality Echocardiogram; LVEF 50 to 55% moderate concentric LVH bubble study does not demonstrate PFO neuro work-up so far -- Hypertensive emergency Uncontrolled blood pressures due to permissive hypertension per stroke protocol Will now resume antihypertensives closely monitor blood pressures As needed hydralazine -- Noncompliance with medication regimen Patient counseled. Patient acknowledges understanding instructions. -- Nicotine dependence Smoking cessation counseling, supportive care, behavior change counseling, +15 minutes. --Alcohol dependence [facility] protocol: Thiamine, folic acid, multivitamin daily. -- DVT prophylaxis SCD to bilateral lower extremities while in bed --Advance care planning Disease education conducted, care plan discussed, diagnoses discussed, Patient's diagnosis of acute stroke discussed in detail with the patient and with her patient's niece over the phone Treatment plan explained in detail, discharge planning per case management, pending PT OT evaluation Also discussed about the medications, uses and side effects Patient acknowledges understanding and agreement with care plan, +32 minutes. prognosis discussed, patient is full code. --Preventive health care Patient counseled regarding risk factor reduction, abstinence from alcohol and cigarette smoking. Cardiac diet. Compliance with medications diet and follow-up visits Early outpatient follow-up with primary care physician , neurologist Risk reduction with lifestyle changes, exercise as tolerated I spent 35 minutes counseling the patient We will closely monitor the patient and adjust management as needed Plan of care reviewed with the patient and his nurse 03/20/2022; acute subcortical stroke on MRI 03/21/22; CTA head and neck, echocardiogram, PT OT DC planning Uncontrolled blood pressures, will add additional antihypertensives Closely monitor 03/22/2022; [facility] reviewing subacute rehab placement Continue current management, DC planning per case management History Interval history: I have seen and examined the patient at the bedside Patient's chart and medications reviewed No new events reported by the nursing staff Patient has dense hemiplegia of the left side Vital signs noted Hospitalist Physical - Constitutional Vitals: Temp Pulse Resp BP Pulse Ox 98.0 F 61 18 156/94 94 03/22/22 16:00 03/22/22 16:00 03/22/22 16:00 03/22/22 16:00 03/22/22 16:00 General appearance: Present: mild distress, well-nourished, other (Left hemiplegia) - EENT Eyes: Present: PERRL, EOM intact - Neck Neck: Present: supple, normal ROM - Respiratory Respiratory effort: normal Respiratory: bilateral: diminished, negative: rales, rhonchi, wheezing - Cardiovascular Rhythm: regular Heart Sounds: Present: S1 & S2 - Extremities Extremities: no ischemia, No edema - Abdominal General gastrointestinal: soft, non-tender, non-distended, normal bowel sounds - Integumentary Integumentary: Present: clear, warm - Psychiatric Psychiatric: appropriate mood/affect, cooperative - Neurologic Neurologic: moves all extremities (Acute CVA with left hemiplegia) HEART Score - HEART Score Troponin: Troponin T < 0.010 ng/mL (0.00-0.029) 03/18/22 12:16 Results - Labs CBC & Chem 7: 03/18/22 12:16 03/22/22 10:37 Labs: Laboratory Last Values WBC 8.7 K/mm3 (4.5-11.0) 03/18/22 12:16 RBC 5.79 M/mm3 (3.65-5.03) H 03/18/22 12:16 Hgb 15.3 gm/dl (11.8-15.2) H 03/18/22 12:16 Hct 48.8 % (35.5-45.6) H 03/18/22 12:16 MCV 84 fl (84-94) 03/18/22 12:16 MCH 26 pg (28-32) L 03/18/22 12:16 MCHC 31 % (32-34) L 03/18/22 12:16 RDW 16.3 % (13.2-15.2) H 03/18/22 12:16 Plt Count 174 K/mm3 (140-440) 03/18/22 12:16 PT 13.0 Sec. (12.2-14.9) 03/18/22 12:16 INR 0.89 (0.87-1.13) 03/18/22 12:16 APTT 27.5 Sec. (24.2-36.6) 03/18/22 12:16 Sodium 134 mmol/L (137-145) L 03/21/22 05:43 Potassium 3.9 mmol/L (3.6-5.0) 03/22/22 10:37 Chloride 96.6 mmol/L (98-107) L 03/21/22 05:43 Carbon Dioxide 23 mmol/L (22-30) 03/21/22 05:43 Anion Gap 18 mmol/L 03/21/22 05:43 BUN 13 mg/dL (9-20) 03/21/22 05:43 Creatinine 1.1 mg/dL (0.8-1.3) 03/21/22 05:43 Estimated GFR > 60 ml/min 03/21/22 05:43 BUN/Creatinine Ratio 12 % 03/21/22 05:43 Glucose 90 mg/dL (75-100) 03/21/22 05:43 Calcium 10.0 mg/dL (8.4-10.2) 03/21/22 05:43 Magnesium 2.00 mg/dL (1.7-2.3) 03/22/22 10:37 Total Bilirubin 0.70 mg/dL (0.1-1.2) 03/18/22 12:16 AST 73 units/L (5-40) H 03/18/22 12:16 ALT 44 units/L (7-56) 03/18/22 12:16 Alkaline Phosphatase 67 units/L (35-129) 03/18/22 12:16 Troponin T < 0.010 ng/mL (0.00-0.029) 03/18/22 12:16 Total Protein 7.8 g/dL (6.3-8.2) 03/18/22 12:16 Albumin 4.6 g/dL (3.9-5) 03/18/22 12:16 Albumin/Globulin Ratio 1.4 % 03/18/22 12:16 Triglycerides 100 mg/dL (2-149) 03/21/22 05:43 Cholesterol 234 mg/dL (50-199) H 03/21/22 05:43 LDL Cholesterol Direct 128 mg/dL (50-130) 03/21/22 05:43 HDL Cholesterol 83 mg/dL (40-59) H 03/21/22 05:43 Cholesterol/HDL Ratio 2.81 % 03/21/22 05:43 Lipase 31 units/L (13-60) 03/18/22 12:16 Urine Color Yellow (Yellow) 03/18/22 Unknown Urine Turbidity Clear (Clear) 03/18/22 Unknown Urine pH 5.0 (5.0-7.0) 03/18/22 Unknown Ur Specific [place] 1.012 (1.003-1.030) 03/18/22 Unknown Urine Protein 30 mg/dl mg/dL (Negative) 03/18/22 Unknown Urine Glucose (UA) Neg mg/dL (Negative) 03/18/22 Unknown Urine Ketones Tr mg/dL (Negative) 03/18/22 Unknown Urine Blood Mod (Negative) 03/18/22 Unknown Urine Nitrite Neg (Negative) 03/18/22 Unknown Urine Bilirubin Neg (Negative) 03/18/22 Unknown Urine Urobilinogen 2.0 mg/dL (<2.0) 03/18/22 Unknown Ur Leukocyte Esterase Neg (Negative) 03/18/22 Unknown Urine WBC (Auto) < 1.0 /HPF (0.0-6.0) 03/18/22 Unknown Urine RBC (Auto) 2.0 /HPF (0.0-6.0) 03/18/22 Unknown U Epithel Cells (Auto) < 1.0 /HPF (0-13.0) 03/18/22 Unknown Hyaline Casts 3 /LPF 03/18/22 Unknown Urine Mucus Few /HPF 03/18/22 Unknown Urine Opiates Screen Presumptive negative 03/20/22 00:20 Urine Methadone Screen Presumptive negative 03/20/22 00:20 Ur Barbiturates Screen Presumptive negative 03/20/22 00:20 Ur Phencyclidine Scrn Presumptive negative 03/20/22 00:20 Ur Amphetamines Screen Presumptive negative 03/20/22 00:20 U Benzodiazepines Scrn Presumptive negative 03/20/22 00:20 Urine Cocaine Screen Presumptive negative 03/20/22 00:20 U Marijuana (THC) Screen Presumptive negative 03/20/22 00:20 Drugs of Abuse Note Disclamer 03/20/22 00:20 Petty/IV: Voiding Method Condom Catheter Active Medications - Current Medications Current Medications: Generic Name Dose Route Start Last Admin Trade Name Freq PRN Reason Stop Dose Admin Acetaminophen 650 mg 03/18/22 16:53 03/18/22 22:22 Acetaminophen 325 Mg Tab PO 650 mg Q4H PRN Administration Pain, Mild (1-3) Aspirin 325 mg 03/19/22 10:00 03/22/22 09:09 Aspirin 325 Mg Tab PO 325 mg QDAY KAMLA Administration Atorvastatin Calcium 40 mg 03/18/22 22:00 03/21/22 21:18 Atorvastatin 40 Mg Tab PO 40 mg QHS KAMLA Administration Bisacodyl 10 mg 03/18/22 16:53 Bisacodyl 10 Mg Rect Supp GA QDAY PRN Constipation Clonidine HCl 0.1 mg 03/21/22 22:00 03/22/22 09:09 Clonidine 0.1 Mg Tab PO 0.1 mg Q12HR KAMLA Administration Enoxaparin Sodium 40 mg 03/20/22 22:00 03/21/22 21:15 Enoxaparin 40 Mg/0.4 Ml Inj SUB-Q 40 mg QDAY@2200 KAMLA Administration Protocol Folic Acid 1 mg 03/19/22 10:00 03/22/22 09:09 Folic Acid 1 Mg Tab PO 1 mg QDAY KAMLA Administration Hydralazine HCl 10 mg 03/18/22 16:59 03/20/22 22:20 Hydralazine 20 Mg/1 Ml Inj IV 10 mg Q6HR PRN Administration Hypertension Hydralazine HCl 25 mg 03/21/22 08:10 03/22/22 13:18 Hydralazine 25 Mg Tab PO 25 mg Q8HR KAMLA Administration Hydromorphone HCl 0.5 mg 03/18/22 16:53 Hydromorphone 1 Mg/1 Ml Inj IV Q12H PRN Pain , Severe (7-10) Lorazepam 2 mg 03/18/22 17:01 Lorazepam 2 Mg/Ml Vial IV Q1HR PRN CIWA-Ar 8-15 Magnesium Hydroxide 30 ml 03/18/22 16:53 Magnesium Hydroxide (Mom) Oral Liqd Udc PO Q4H PRN Constipation Metoclopramide HCl 10 mg 03/18/22 16:53 Metoclopramide 10 Mg Tab PO Q6H PRN Nausea And Vomiting Nifedipine 30 mg 03/21/22 22:00 03/22/22 09:09 Nifedipine Xl 30 Mg Tab PO 30 mg Q12HR KAMLA Administration Ondansetron HCl 4 mg 03/18/22 16:53 Ondansetron 4 Mg/2 Ml Inj IV Q8H PRN Nausea And Vomiting Oxycodone/Acetaminophen 1 tab 03/18/22 16:53 Oxycodone /Acetaminophen 5-325mg Tab PO Q16H PRN Pain, Moderate (4-6) Promethazine HCl 25 mg 03/18/22 16:53 Promethazine 25 Mg Rect Supp GA Q6H PRN Nausea And Vomiting Sodium Chloride 10 ml 03/18/22 16:53 03/21/22 10:00 Sodium Chloride 0.9% 10 Ml Flush Syringe IV 10 ml PRN PRN Administration LINE FLUSH
[2022-03-22] MEDS: ENOXAPARIN 40 MG/0.4 ML INJ SUB-Q SCH (21:05)
[2022-03-23] MEDS: hydrALAZINE 25 MG TAB PO SCH ×3 (05:56→22:10)
[2022-03-23] MEDS: hydrALAZINE 20 MG/1 ML INJ IV PRN (05:57)
--- NOTE | 2022-03-23 08:33 | Progress Note ---
Assessment and Plan Assessment and plan: PT; evaluation noted and appreciated, recommend acute rehab OT; evaluation and recommendations noted and appreciated, recommend subacute rehab DC plan per case management Rehab placement -- Acute subcortical stroke Current Visit: Yes Status: Acute Not a candidate for tPA Continue aspirin and statin PT OT rehabilitation CVA protocol: CT scan head, seizure precautions, aspiration precautions, Check CTA head, CTA neck, echocardiogram DC planning per case management Continue PT and OT, rehab placement pending --left hemiplegia; Physical therapy, Occupational Therapy, rehabilitation Neuro work-up so far: CT head without contrast :No acute intracranial abnormality, chronic white matter changes noted MRI brain; acute right subcortical infarct CTA neck, and carotid arteries no significant abnormality carotid bifurcation normal cervical internal carotid arteries no significant abnormalities CTA head; no significant abnormality Echocardiogram; LVEF 50 to 55% moderate concentric LVH bubble study does not demonstrate PFO neuro work-up so far -- Hypertensive emergency Well controlled this morning, continue current antihypertensives As needed medications -- Noncompliance with medication regimen Patient counseled. Patient acknowledges understanding instructions. -- Nicotine dependence Smoking cessation counseling, supportive care, behavior change counseling, +15 minutes. --Alcohol dependence [facility] protocol: Thiamine, folic acid, multivitamin daily. -- DVT prophylaxis SCD to bilateral lower extremities while in bed --Advance care planning Disease education conducted, care plan discussed, diagnoses discussed, Patient's diagnosis of acute stroke discussed in detail with the patient and with her patient's niece over the phone Treatment plan explained in detail, discharge planning per case management, pending PT OT evaluation Also discussed about the medications, uses and side effects Patient acknowledges understanding and agreement with care plan, +32 minutes. prognosis discussed, patient is full code. --Preventive health care Patient counseled regarding risk factor reduction, abstinence from alcohol and cigarette smoking. Cardiac diet. Compliance with medications diet and follow-up visits Early outpatient follow-up with primary care physician , neurologist Risk reduction with lifestyle changes, exercise as tolerated I spent 35 minutes counseling the patient We will closely monitor the patient and adjust management as needed Plan of care reviewed with the patient and his nurse 03/20/2022; acute subcortical stroke on MRI 03/21/22; CTA head and neck, echocardiogram, PT OT DC planning Uncontrolled blood pressures, will add additional antihypertensives Closely monitor 03/22/2022; [facility] reviewing subacute rehab placement Continue current management, DC planning per case management 03/23/2022; continue PT OT, awaiting subacute placement DC planning per case management History Interval history: 61-year-old male patient with acute CVA with left-sided hemiplegia , PT OT recommended acute rehab , awaiting placement I have seen and examined the patient at the bedside No new complaints Vital signs noted Hospitalist Physical - Constitutional Vitals: Temp Pulse Resp BP Pulse Ox 98.1 F 60 18 137/82 96 03/23/22 05:41 03/23/22 05:57 03/23/22 05:41 03/23/22 06:34 03/23/22 05:41 General appearance: Present: mild distress, well-nourished, other (Left hemiplegia) - EENT Eyes: Present: PERRL, EOM intact - Neck Neck: Present: supple, normal ROM - Respiratory Respiratory effort: normal Respiratory: bilateral: diminished, negative: rales, rhonchi, wheezing - Cardiovascular Rhythm: regular Heart Sounds: Present: S1 & S2 - Extremities Extremities: no ischemia, No edema, abnormal (Left-sided upper and lower extremity hemiplegia) - Abdominal General gastrointestinal: soft, non-tender, non-distended, normal bowel sounds - Integumentary Integumentary: Present: clear, warm - Psychiatric Psychiatric: appropriate mood/affect, cooperative - Neurologic Neurologic: moves all extremities (Acute CVA with left hemiplegia) HEART Score - HEART Score Troponin: Troponin T < 0.010 ng/mL (0.00-0.029) 03/18/22 12:16 Results - Labs CBC & Chem 7: 03/18/22 12:16 03/22/22 10:37 Labs: Laboratory Last Values WBC 8.7 K/mm3 (4.5-11.0) 03/18/22 12:16 RBC 5.79 M/mm3 (3.65-5.03) H 03/18/22 12:16 Hgb 15.3 gm/dl (11.8-15.2) H 03/18/22 12:16 Hct 48.8 % (35.5-45.6) H 03/18/22 12:16 MCV 84 fl (84-94) 03/18/22 12:16 MCH 26 pg (28-32) L 03/18/22 12:16 MCHC 31 % (32-34) L 03/18/22 12:16 RDW 16.3 % (13.2-15.2) H 03/18/22 12:16 Plt Count 174 K/mm3 (140-440) 03/18/22 12:16 PT 13.0 Sec. (12.2-14.9) 03/18/22 12:16 INR 0.89 (0.87-1.13) 03/18/22 12:16 APTT 27.5 Sec. (24.2-36.6) 03/18/22 12:16 Sodium 134 mmol/L (137-145) L 03/21/22 05:43 Potassium 3.9 mmol/L (3.6-5.0) 03/22/22 10:37 Chloride 96.6 mmol/L (98-107) L 03/21/22 05:43 Carbon Dioxide 23 mmol/L (22-30) 03/21/22 05:43 Anion Gap 18 mmol/L 03/21/22 05:43 BUN 13 mg/dL (9-20) 03/21/22 05:43 Creatinine 1.1 mg/dL (0.8-1.3) 03/21/22 05:43 Estimated GFR > 60 ml/min 03/21/22 05:43 BUN/Creatinine Ratio 12 % 03/21/22 05:43 Glucose 90 mg/dL (75-100) 03/21/22 05:43 Calcium 10.0 mg/dL (8.4-10.2) 03/21/22 05:43 Magnesium 2.00 mg/dL (1.7-2.3) 03/22/22 10:37 Total Bilirubin 0.70 mg/dL (0.1-1.2) 03/18/22 12:16 AST 73 units/L (5-40) H 03/18/22 12:16 ALT 44 units/L (7-56) 03/18/22 12:16 Alkaline Phosphatase 67 units/L (35-129) 03/18/22 12:16 Troponin T < 0.010 ng/mL (0.00-0.029) 03/18/22 12:16 Total Protein 7.8 g/dL (6.3-8.2) 03/18/22 12:16 Albumin 4.6 g/dL (3.9-5) 03/18/22 12:16 Albumin/Globulin Ratio 1.4 % 03/18/22 12:16 Triglycerides 100 mg/dL (2-149) 03/21/22 05:43 Cholesterol 234 mg/dL (50-199) H 03/21/22 05:43 LDL Cholesterol Direct 128 mg/dL (50-130) 03/21/22 05:43 HDL Cholesterol 83 mg/dL (40-59) H 03/21/22 05:43 Cholesterol/HDL Ratio 2.81 % 03/21/22 05:43 Lipase 31 units/L (13-60) 03/18/22 12:16 Urine Color Yellow (Yellow) 03/18/22 Unknown Urine Turbidity Clear (Clear) 03/18/22 Unknown Urine pH 5.0 (5.0-7.0) 03/18/22 Unknown Ur Specific [place] 1.012 (1.003-1.030) 03/18/22 Unknown Urine Protein 30 mg/dl mg/dL (Negative) 03/18/22 Unknown Urine Glucose (UA) Neg mg/dL (Negative) 03/18/22 Unknown Urine Ketones Tr mg/dL (Negative) 03/18/22 Unknown Urine Blood Mod (Negative) 03/18/22 Unknown Urine Nitrite Neg (Negative) 03/18/22 Unknown Urine Bilirubin Neg (Negative) 03/18/22 Unknown Urine Urobilinogen 2.0 mg/dL (<2.0) 03/18/22 Unknown Ur Leukocyte Esterase Neg (Negative) 03/18/22 Unknown Urine WBC (Auto) < 1.0 /HPF (0.0-6.0) 03/18/22 Unknown Urine RBC (Auto) 2.0 /HPF (0.0-6.0) 03/18/22 Unknown U Epithel Cells (Auto) < 1.0 /HPF (0-13.0) 03/18/22 Unknown Hyaline Casts 3 /LPF 03/18/22 Unknown Urine Mucus Few /HPF 03/18/22 Unknown Urine Opiates Screen Presumptive negative 03/20/22 00:20 Urine Methadone Screen Presumptive negative 03/20/22 00:20 Ur Barbiturates Screen Presumptive negative 03/20/22 00:20 Ur Phencyclidine Scrn Presumptive negative 03/20/22 00:20 Ur Amphetamines Screen Presumptive negative 03/20/22 00:20 U Benzodiazepines Scrn Presumptive negative 03/20/22 00:20 Urine Cocaine Screen Presumptive negative 03/20/22 00:20 U Marijuana (THC) Screen Presumptive negative 03/20/22 00:20 Drugs of Abuse Note Disclamer 03/20/22 00:20 Petty/IV: Voiding Method Condom Catheter Active Medications - Current Medications Current Medications: Generic Name Dose Route Start Last Admin Trade Name Freq PRN Reason Stop Dose Admin Acetaminophen 650 mg 03/18/22 16:53 03/18/22 22:22 Acetaminophen 325 Mg Tab PO 650 mg Q4H PRN Administration Pain, Mild (1-3) Aspirin 325 mg 03/19/22 10:00 03/22/22 09:09 Aspirin 325 Mg Tab PO 325 mg QDAY KAMLA Administration Atorvastatin Calcium 40 mg 03/18/22 22:00 03/22/22 21:06 Atorvastatin 40 Mg Tab PO 40 mg QHS KAMLA Administration Bisacodyl 10 mg 03/18/22 16:53 Bisacodyl 10 Mg Rect Supp SC QDAY PRN Constipation Clonidine HCl 0.1 mg 03/21/22 22:00 03/22/22 21:07 Clonidine 0.1 Mg Tab PO 0.1 mg Q12HR KAMLA Administration Enoxaparin Sodium 40 mg 03/20/22 22:00 03/22/22 21:05 Enoxaparin 40 Mg/0.4 Ml Inj SUB-Q 40 mg QDAY@2200 KAMLA Administration Protocol Folic Acid 1 mg 03/19/22 10:00 03/22/22 09:09 Folic Acid 1 Mg Tab PO 1 mg QDAY KAMLA Administration Hydralazine HCl 10 mg 03/18/22 16:59 03/23/22 05:57 Hydralazine 20 Mg/1 Ml Inj IV 10 mg Q6HR PRN Administration Hypertension Hydralazine HCl 25 mg 03/21/22 08:10 03/23/22 05:56 Hydralazine 25 Mg Tab PO 25 mg Q8HR KAMLA Administration Hydromorphone HCl 0.5 mg 03/18/22 16:53 Hydromorphone 1 Mg/1 Ml Inj IV Q12H PRN Pain , Severe (7-10) Lorazepam 2 mg 03/18/22 17:01 Lorazepam 2 Mg/Ml Vial IV Q1HR PRN CIWA-Ar 8-15 Magnesium Hydroxide 30 ml 03/18/22 16:53 Magnesium Hydroxide (Mom) Oral Liqd Udc PO Q4H PRN Constipation Metoclopramide HCl 10 mg 03/18/22 16:53 Metoclopramide 10 Mg Tab PO Q6H PRN Nausea And Vomiting Nifedipine 30 mg 03/21/22 22:00 03/22/22 21:06 Nifedipine Xl 30 Mg Tab PO 30 mg Q12HR KAMLA Administration Ondansetron HCl 4 mg 03/18/22 16:53 Ondansetron 4 Mg/2 Ml Inj IV Q8H PRN Nausea And Vomiting Oxycodone/Acetaminophen 1 tab 03/18/22 16:53 Oxycodone /Acetaminophen 5-325mg Tab PO Q16H PRN Pain, Moderate (4-6) Promethazine HCl 25 mg 03/18/22 16:53 Promethazine 25 Mg Rect Supp SC Q6H PRN Nausea And Vomiting Sodium Chloride 10 ml 03/18/22 16:53 03/21/22 10:00 Sodium Chloride 0.9% 10 Ml Flush Syringe IV 10 ml PRN PRN Administration LINE FLUSH
[2022-03-23] MEDS: cloNIDine 0.1 MG TAB PO SCH ×2 (10:09→22:08)
[2022-03-23] MEDS: ASPIRIN 325 MG TAB PO SCH (10:09)
[2022-03-23] MEDS: NIFEdipine XL 30 MG TAB PO SCH ×2 (10:11→22:12)
[2022-03-23] MEDS: FOLIC ACID 1 MG TAB PO SCH (10:11)
[2022-03-23] MEDS: ENOXAPARIN 40 MG/0.4 ML INJ SUB-Q SCH (22:10)
[2022-03-24] MEDS: hydrALAZINE 25 MG TAB PO SCH ×3 (05:36→22:02)
--- NOTE | 2022-03-24 08:50 | Progress Note ---
Assessment and Plan Assessment and plan: PT; evaluation noted and appreciated, recommend acute rehab OT; evaluation and recommendations noted and appreciated, recommend subacute rehab DC plan per case management Rehab placement -- Acute right subcortical stroke Current Visit: Yes Status: Acute Not a candidate for tPA Continue aspirin and statin PT OT rehabilitation CVA protocol: CT scan head, seizure precautions, aspiration precautions, Check CTA head, CTA neck, echocardiogram DC planning per case management Continue PT and OT, rehab placement pending --left hemiplegia; Physical therapy, Occupational Therapy, rehabilitation Neuro work-up so far: CT head without contrast :No acute intracranial abnormality, chronic white matter changes noted MRI brain; acute right subcortical infarct CTA neck, and carotid arteries no significant abnormality carotid bifurcation normal cervical internal carotid arteries no significant abnormalities CTA head; no significant abnormality Echocardiogram; LVEF 50 to 55% moderate concentric LVH bubble study does not demonstrate PFO neuro work-up so far -- Hypertensive emergency; blood pressures moderate controlled increase hydralazine to 50 mg 3 times daily Continue other antihypertensives --Dyslipidemia; Low-cholesterol diet, statin -- Noncompliance with medication regimen Patient counseled. Patient acknowledges understanding instructions. -- Nicotine dependence Smoking cessation counseling, supportive care, behavior change counseling, +15 minutes. --Alcohol dependence CIWA protocol: Thiamine, folic acid, multivitamin daily. -- DVT prophylaxis SCD to bilateral lower extremities while in bed --Advance care planning Disease education conducted, care plan discussed, diagnoses discussed, Patient's diagnosis of acute stroke discussed in detail with the patient and with her patient's niece over the phone Treatment plan explained in detail, discharge planning per case management, p ending PT OT evaluation Also discussed about the medications, uses and side effects Patient acknowledges understanding and agreement with care plan, +32 minutes. prognosis discussed, patient is full code. --Preventive health care Patient counseled regarding risk factor reduction, abstinence from alcohol and cigarette smoking. Cardiac diet. Compliance with medications diet and follow-up visits Early outpatient follow-up with primary care physician , neurologist Risk reduction with lifestyle changes, exercise as tolerated I spent 35 minutes counseling the patient We will closely monitor the patient and adjust management as needed Plan of care reviewed with the patient and his nurse 03/20/2022; acute subcortical stroke on MRI 03/21/22; CTA head and neck, echocardiogram, PT OT DC planning Uncontrolled blood pressures, will add additional antihypertensives Closely monitor 03/22/2022; [facility] reviewing subacute rehab placement Continue current management, DC planning per case management 03/23/2022; continue PT OT, awaiting subacute placement DC planning per case management 03/24/2022; patient is medically stable for discharge, awaiting placement DC planning per case management History Interval history: I have seen and examined the patient at the bedside Patient's chart and medications reviewed Patient complains of generalized weakness Patient with acute CVA with left-sided hemiplegia Awaiting placement vital signs noted Hospitalist Physical - Constitutional Vitals: Temp Pulse Resp BP Pulse Ox 98.3 F 54 L 18 149/90 98 03/24/22 04:48 03/24/22 05:36 03/24/22 04:48 03/24/22 05:36 03/24/22 04:48 General appearance: Present: no acute distress, well-nourished, other (Left hemiplegia) - EENT Eyes: Present: PERRL, EOM intact - Neck Neck: Present: supple, normal ROM - Respiratory Respiratory effort: normal Respiratory: bilateral: diminished, negative: rales, rhonchi, wheezing - Cardiovascular Rhythm: regular Heart Sounds: Present: S1 & S2 - Extremities Extremities: no ischemia, No edema - Abdominal General gastrointestinal: soft, non-tender, non-distended, normal bowel sounds - Integumentary Integumentary: Present: clear, warm - Psychiatric Psychiatric: appropriate mood/affect, cooperative - Neurologic Neurologic: moves all extremities (Acute CVA with left-sided hemiplegia) HEART Score - HEART Score Troponin: Troponin T < 0.010 ng/mL (0.00-0.029) 03/18/22 12:16 Results - Labs CBC & Chem 7: 03/18/22 12:16 03/22/22 10:37 Labs: Laboratory Last Values WBC 8.7 K/mm3 (4.5-11.0) 03/18/22 12:16 RBC 5.79 M/mm3 (3.65-5.03) H 03/18/22 12:16 Hgb 15.3 gm/dl (11.8-15.2) H 03/18/22 12:16 Hct 48.8 % (35.5-45.6) H 03/18/22 12:16 MCV 84 fl (84-94) 03/18/22 12:16 MCH 26 pg (28-32) L 03/18/22 12:16 MCHC 31 % (32-34) L 03/18/22 12:16 RDW 16.3 % (13.2-15.2) H 03/18/22 12:16 Plt Count 174 K/mm3 (140-440) 03/18/22 12:16 PT 13.0 Sec. (12.2-14.9) 03/18/22 12:16 INR 0.89 (0.87-1.13) 03/18/22 12:16 APTT 27.5 Sec. (24.2-36.6) 03/18/22 12:16 Sodium 134 mmol/L (137-145) L 03/21/22 05:43 Potassium 3.9 mmol/L (3.6-5.0) 03/22/22 10:37 Chloride 96.6 mmol/L (98-107) L 03/21/22 05:43 Carbon Dioxide 23 mmol/L (22-30) 03/21/22 05:43 Anion Gap 18 mmol/L 03/21/22 05:43 BUN 13 mg/dL (9-20) 03/21/22 05:43 Creatinine 1.1 mg/dL (0.8-1.3) 03/21/22 05:43 Estimated GFR > 60 ml/min 03/21/22 05:43 BUN/Creatinine Ratio 12 % 03/21/22 05:43 Glucose 90 mg/dL (75-100) 03/21/22 05:43 Calcium 10.0 mg/dL (8.4-10.2) 03/21/22 05:43 Magnesium 2.00 mg/dL (1.7-2.3) 03/22/22 10:37 Total Bilirubin 0.70 mg/dL (0.1-1.2) 03/18/22 12:16 AST 73 units/L (5-40) H 03/18/22 12:16 ALT 44 units/L (7-56) 03/18/22 12:16 Alkaline Phosphatase 67 units/L (35-129) 03/18/22 12:16 Troponin T < 0.010 ng/mL (0.00-0.029) 03/18/22 12:16 Total Protein 7.8 g/dL (6.3-8.2) 03/18/22 12:16 Albumin 4.6 g/dL (3.9-5) 03/18/22 12:16 Albumin/Globulin Ratio 1.4 % 03/18/22 12:16 Triglycerides 100 mg/dL (2-149) 03/21/22 05:43 Cholesterol 234 mg/dL (50-199) H 03/21/22 05:43 LDL Cholesterol Direct 128 mg/dL (50-130) 03/21/22 05:43 HDL Cholesterol 83 mg/dL (40-59) H 03/21/22 05:43 Cholesterol/HDL Ratio 2.81 % 03/21/22 05:43 Lipase 31 units/L (13-60) 03/18/22 12:16 Urine Color Yellow (Yellow) 03/18/22 Unknown Urine Turbidity Clear (Clear) 03/18/22 Unknown Urine pH 5.0 (5.0-7.0) 03/18/22 Unknown Ur Specific [place] 1.012 (1.003-1.030) 03/18/22 Unknown Urine Protein 30 mg/dl mg/dL (Negative) 03/18/22 Unknown Urine Glucose (UA) Neg mg/dL (Negative) 03/18/22 Unknown Urine Ketones Tr mg/dL (Negative) 03/18/22 Unknown Urine Blood Mod (Negative) 03/18/22 Unknown Urine Nitrite Neg (Negative) 03/18/22 Unknown Urine Bilirubin Neg (Negative) 03/18/22 Unknown Urine Urobilinogen 2.0 mg/dL (<2.0) 03/18/22 Unknown Ur Leukocyte Esterase Neg (Negative) 03/18/22 Unknown Urine WBC (Auto) < 1.0 /HPF (0.0-6.0) 03/18/22 Unknown Urine RBC (Auto) 2.0 /HPF (0.0-6.0) 03/18/22 Unknown U Epithel Cells (Auto) < 1.0 /HPF (0-13.0) 03/18/22 Unknown Hyaline Casts 3 /LPF 03/18/22 Unknown Urine Mucus Few /HPF 03/18/22 Unknown Urine Opiates Screen Presumptive negative 03/20/22 00:20 Urine Methadone Screen Presumptive negative 03/20/22 00:20 Ur Barbiturates Screen Presumptive negative 03/20/22 00:20 Ur Phencyclidine Scrn Presumptive negative 03/20/22 00:20 Ur Amphetamines Screen Presumptive negative 03/20/22 00:20 U Benzodiazepines Scrn Presumptive negative 03/20/22 00:20 Urine Cocaine Screen Presumptive negative 03/20/22 00:20 U Marijuana (THC) Screen Presumptive negative 03/20/22 00:20 Drugs of Abuse Note Disclamer 03/20/22 00:20 Petty/IV: Voiding Method Urinal Active Medications - Current Medications Current Medications: Generic Name Dose Route Start Last Admin Trade Name Freq PRN Reason Stop Dose Admin Acetaminophen 650 mg 03/18/22 16:53 03/18/22 22:22 Acetaminophen 325 Mg Tab PO 650 mg Q4H PRN Administration Pain, Mild (1-3) Aspirin 325 mg 03/19/22 10:00 03/23/22 10:09 Aspirin 325 Mg Tab PO 325 mg QDAY KAMLA Administration Atorvastatin Calcium 40 mg 03/18/22 22:00 03/23/22 22:08 Atorvastatin 40 Mg Tab PO 40 mg QHS KAMLA Administration Bisacodyl 10 mg 03/18/22 16:53 Bisacodyl 10 Mg Rect Supp [place] QDAY PRN Constipation Clonidine HCl 0.1 mg 03/21/22 22:00 03/23/22 22:08 Clonidine 0.1 Mg Tab PO 0.1 mg Q12HR KAMLA Administration Enoxaparin Sodium 40 mg 03/20/22 22:00 03/23/22 22:10 Enoxaparin 40 Mg/0.4 Ml Inj SUB-Q 40 mg QDAY@2200 KAMLA Administration Protocol Folic Acid 1 mg 03/19/22 10:00 03/23/22 10:11 Folic Acid 1 Mg Tab PO 1 mg QDAY KAMLA Administration Hydralazine HCl 10 mg 03/18/22 16:59 03/23/22 05:57 Hydralazine 20 Mg/1 Ml Inj IV 10 mg Q6HR PRN Administration Hypertension Hydralazine HCl 50 mg 03/24/22 08:01 Hydralazine 25 Mg Tab PO Q8HR KAMLA Hydromorphone HCl 0.5 mg 03/18/22 16:53 Hydromorphone 1 Mg/1 Ml Inj IV Q12H PRN Pain , Severe (7-10) Lorazepam 2 mg 03/18/22 17:01 Lorazepam 2 Mg/Ml Vial IV Q1HR PRN CIWA-Ar 8-15 Magnesium Hydroxide 30 ml 03/18/22 16:53 Magnesium Hydroxide (Mom) Oral Liqd Udc PO Q4H PRN Constipation Metoclopramide HCl 10 mg 03/18/22 16:53 Metoclopramide 10 Mg Tab PO Q6H PRN Nausea And Vomiting Nifedipine 30 mg 03/21/22 22:00 03/23/22 22:12 Nifedipine Xl 30 Mg Tab PO 30 mg Q12HR KAMLA Administration Ondansetron HCl 4 mg 03/18/22 16:53 Ondansetron 4 Mg/2 Ml Inj IV Q8H PRN Nausea And Vomiting Oxycodone/Acetaminophen 1 tab 03/18/22 16:53 Oxycodone /Acetaminophen 5-325mg Tab PO Q16H PRN Pain, Moderate (4-6) Promethazine HCl 25 mg 03/18/22 16:53 Promethazine 25 Mg Rect Supp [place] Q6H PRN Nausea And Vomiting Sodium Chloride 10 ml 03/18/22 16:53 03/21/22 10:00 Sodium Chloride 0.9% 10 Ml Flush Syringe IV 10 ml PRN PRN Administration LINE FLUSH
[2022-03-24] MEDS: ASPIRIN 325 MG TAB PO SCH (09:29)
[2022-03-24] MEDS: FOLIC ACID 1 MG TAB PO SCH (09:29)
[2022-03-24] MEDS: NIFEdipine XL 30 MG TAB PO SCH ×2 (09:29→22:01)
[2022-03-24] MEDS: cloNIDine 0.1 MG TAB PO SCH ×2 (09:30→22:01)
[2022-03-24] MEDS: ENOXAPARIN 40 MG/0.4 ML INJ SUB-Q SCH (22:00)
[2022-03-24] MEDS ORDERED: ZOLPIDEM 5 MG TAB PO ONE (23:05)
[2022-03-25] MEDS: hydrALAZINE 25 MG TAB PO SCH ×3 (05:32→21:11)
--- NOTE | 2022-03-25 09:44 | Progress Note ---
Assessment and Plan Assessment and plan: PT; evaluation noted and appreciated, recommend acute rehab OT; evaluation and recommendations noted and appreciated, recommend subacute rehab DC plan per case management Rehab placement -- Acute right subcortical stroke Current Visit: Yes Status: Acute Not a candidate for tPA Continue aspirin and statin PT OT rehabilitation CVA protocol: CT scan head, seizure precautions, aspiration precautions, Check CTA head, CTA neck, echocardiogram DC planning per case management Continue PT and OT, rehab placement pending --left hemiplegia; Physical therapy, Occupational Therapy, rehabilitation Neuro work-up so far: CT head without contrast :No acute intracranial abnormality, chronic white matter changes noted MRI brain; acute right subcortical infarct CTA neck, and carotid arteries no significant abnormality carotid bifurcation normal cervical internal carotid arteries no significant abnormalities CTA head; no significant abnormality Echocardiogram; LVEF 50 to 55% moderate concentric LVH bubble study does not demonstrate PFO neuro work-up so far -- Hypertensive emergency; blood pressures moderate controlled increase hydralazine to 50 mg 3 times daily Continue other antihypertensives --Dyslipidemia; Low-cholesterol diet, statin -- Noncompliance with medication regimen Patient counseled. Patient acknowledges understanding instructions. -- Nicotine dependence Smoking cessation counseling, supportive care, behavior change counseling, +15 minutes. --Alcohol dependence CIWA protocol: Thiamine, folic acid, multivitamin daily. -- DVT prophylaxis SCD to bilateral lower extremities while in bed --Advance care planning Disease education conducted, care plan discussed, diagnoses discussed, Patient's diagnosis of acute stroke discussed in detail with the patient and with her patient's niece over the phone Treatment plan explained in detail, discharge planning per case management, p ending PT OT evaluation Also discussed about the medications, uses and side effects Patient acknowledges understanding and agreement with care plan, +32 minutes. prognosis discussed, patient is full code. --Preventive health care Patient counseled regarding risk factor reduction, abstinence from alcohol and cigarette smoking. Cardiac diet. Compliance with medications diet and follow-up visits Early outpatient follow-up with primary care physician , neurologist Risk reduction with lifestyle changes, exercise as tolerated I spent 35 minutes counseling the patient We will closely monitor the patient and adjust management as needed Plan of care reviewed with the patient and his nurse 03/20/2022; acute subcortical stroke on MRI 03/21/22; CTA head and neck, echocardiogram, PT OT DC planning Uncontrolled blood pressures, will add additional antihypertensives Closely monitor 03/22/2022; [facility] reviewing subacute rehab placement Continue current management, DC planning per case management 03/23/2022; continue PT OT, awaiting subacute placement DC planning per case management 03/24/2022; patient is medically stable for discharge, awaiting placement DC planning per case management 03/25; patient is medically stable for discharge pending authorization for placement Hospitalist Physical - Constitutional Vitals: Temp Pulse Resp BP Pulse Ox 97.8 F 59 L 18 168/99 98 03/25/22 05:19 03/25/22 05:32 03/25/22 05:19 03/25/22 05:32 03/25/22 05:19 General appearance: Present: no acute distress, well-nourished, other (Left hemiplegia) HEART Score - HEART Score Troponin: Troponin T < 0.010 ng/mL (0.00-0.029) 03/18/22 12:16 Results - Labs CBC & Chem 7: 03/18/22 12:16 03/22/22 10:37 Labs: Laboratory Last Values WBC 8.7 K/mm3 (4.5-11.0) 03/18/22 12:16 RBC 5.79 M/mm3 (3.65-5.03) H 03/18/22 12:16 Hgb 15.3 gm/dl (11.8-15.2) H 03/18/22 12:16 Hct 48.8 % (35.5-45.6) H 03/18/22 12:16 MCV 84 fl (84-94) 03/18/22 12:16 MCH 26 pg (28-32) L 03/18/22 12:16 MCHC 31 % (32-34) L 03/18/22 12:16 RDW 16.3 % (13.2-15.2) H 03/18/22 12:16 Plt Count 174 K/mm3 (140-440) 03/18/22 12:16 PT 13.0 Sec. (12.2-14.9) 03/18/22 12:16 INR 0.89 (0.87-1.13) 03/18/22 12:16 APTT 27.5 Sec. (24.2-36.6) 03/18/22 12:16 Sodium 134 mmol/L (137-145) L 03/21/22 05:43 Potassium 3.9 mmol/L (3.6-5.0) 03/22/22 10:37 Chloride 96.6 mmol/L (98-107) L 03/21/22 05:43 Carbon Dioxide 23 mmol/L (22-30) 03/21/22 05:43 Anion Gap 18 mmol/L 03/21/22 05:43 BUN 13 mg/dL (9-20) 03/21/22 05:43 Creatinine 1.1 mg/dL (0.8-1.3) 03/21/22 05:43 Estimated GFR > 60 ml/min 03/21/22 05:43 BUN/Creatinine Ratio 12 % 03/21/22 05:43 Glucose 90 mg/dL (75-100) 03/21/22 05:43 Calcium 10.0 mg/dL (8.4-10.2) 03/21/22 05:43 Magnesium 2.00 mg/dL (1.7-2.3) 03/22/22 10:37 Total Bilirubin 0.70 mg/dL (0.1-1.2) 03/18/22 12:16 AST 73 units/L (5-40) H 03/18/22 12:16 ALT 44 units/L (7-56) 03/18/22 12:16 Alkaline Phosphatase 67 units/L (35-129) 03/18/22 12:16 Troponin T < 0.010 ng/mL (0.00-0.029) 03/18/22 12:16 Total Protein 7.8 g/dL (6.3-8.2) 03/18/22 12:16 Albumin 4.6 g/dL (3.9-5) 03/18/22 12:16 Albumin/Globulin Ratio 1.4 % 03/18/22 12:16 Triglycerides 100 mg/dL (2-149) 03/21/22 05:43 Cholesterol 234 mg/dL (50-199) H 03/21/22 05:43 LDL Cholesterol Direct 128 mg/dL (50-130) 03/21/22 05:43 HDL Cholesterol 83 mg/dL (40-59) H 03/21/22 05:43 Cholesterol/HDL Ratio 2.81 % 03/21/22 05:43 Lipase 31 units/L (13-60) 03/18/22 12:16 Urine Color Yellow (Yellow) 03/18/22 Unknown Urine Turbidity Clear (Clear) 03/18/22 Unknown Urine pH 5.0 (5.0-7.0) 03/18/22 Unknown Ur Specific [place] 1.012 (1.003-1.030) 03/18/22 Unknown Urine Protein 30 mg/dl mg/dL (Negative) 03/18/22 Unknown Urine Glucose (UA) Neg mg/dL (Negative) 03/18/22 Unknown Urine Ketones Tr mg/dL (Negative) 03/18/22 Unknown Urine Blood Mod (Negative) 03/18/22 Unknown Urine Nitrite Neg (Negative) 03/18/22 Unknown Urine Bilirubin Neg (Negative) 03/18/22 Unknown Urine Urobilinogen 2.0 mg/dL (<2.0) 03/18/22 Unknown Ur Leukocyte Esterase Neg (Negative) 03/18/22 Unknown Urine WBC (Auto) < 1.0 /HPF (0.0-6.0) 03/18/22 Unknown Urine RBC (Auto) 2.0 /HPF (0.0-6.0) 03/18/22 Unknown U Epithel Cells (Auto) < 1.0 /HPF (0-13.0) 03/18/22 Unknown Hyaline Casts 3 /LPF 03/18/22 Unknown Urine Mucus Few /HPF 03/18/22 Unknown Urine Opiates Screen Presumptive negative 03/20/22 00:20 Urine Methadone Screen Presumptive negative 03/20/22 00:20 Ur Barbiturates Screen Presumptive negative 03/20/22 00:20 Ur Phencyclidine Scrn Presumptive negative 03/20/22 00:20 Ur Amphetamines Screen Presumptive negative 03/20/22 00:20 U Benzodiazepines Scrn Presumptive negative 03/20/22 00:20 Urine Cocaine Screen Presumptive negative 03/20/22 00:20 U Marijuana (THC) Screen Presumptive negative 03/20/22 00:20 Drugs of Abuse Note Disclamer 03/20/22 00:20 Petty/IV: Voiding Method Urinal Active Medications - Current Medications Current Medications: Generic Name Dose Route Start Last Admin Trade Name Freq PRN Reason Stop Dose Admin Acetaminophen 650 mg 03/18/22 16:53 03/18/22 22:22 Acetaminophen 325 Mg Tab PO 650 mg Q4H PRN Administration Pain, Mild (1-3) Aspirin 325 mg 03/19/22 10:00 03/24/22 09:29 Aspirin 325 Mg Tab PO 325 mg QDAY KAMLA Administration Atorvastatin Calcium 40 mg 03/18/22 22:00 03/24/22 22:01 Atorvastatin 40 Mg Tab PO 40 mg QHS KAMLA Administration Bisacodyl 10 mg 03/18/22 16:53 Bisacodyl 10 Mg Rect Supp [place] QDAY PRN Constipation Clonidine HCl 0.1 mg 03/21/22 22:00 03/24/22 22:01 Clonidine 0.1 Mg Tab PO 0.1 mg Q12HR KAMLA Administration Enoxaparin Sodium 40 mg 03/20/22 22:00 03/24/22 22:00 Enoxaparin 40 Mg/0.4 Ml Inj SUB-Q 40 mg QDAY@2200 [facility] Administration Protocol Folic Acid 1 mg 03/19/22 10:00 03/24/22 09:29 Folic Acid 1 Mg Tab PO 1 mg QDAY KAMLA Administration Hydralazine HCl 10 mg 03/18/22 16:59 03/23/22 05:57 Hydralazine 20 Mg/1 Ml Inj IV 10 mg Q6HR PRN Administration Hypertension Hydralazine HCl 50 mg 03/24/22 08:01 03/25/22 05:32 Hydralazine 25 Mg Tab PO 50 mg Q8HR KAMLA Administration Hydromorphone HCl 0.5 mg 03/18/22 16:53 Hydromorphone 1 Mg/1 Ml Inj IV Q12H PRN Pain , Severe (7-10) Lorazepam 2 mg 03/18/22 17:01 Lorazepam 2 Mg/Ml Vial IV Q1HR PRN CIWA-Ar 8-15 Magnesium Hydroxide 30 ml 03/18/22 16:53 Magnesium Hydroxide (Mom) Oral Liqd Udc PO Q4H PRN Constipation Metoclopramide HCl 10 mg 03/18/22 16:53 Metoclopramide 10 Mg Tab PO Q6H PRN Nausea And Vomiting Nifedipine 30 mg 03/21/22 22:00 03/24/22 22:01 Nifedipine Xl 30 Mg Tab PO 30 mg Q12HR KAMLA Administration Ondansetron HCl 4 mg 03/18/22 16:53 Ondansetron 4 Mg/2 Ml Inj IV Q8H PRN Nausea And Vomiting Oxycodone/Acetaminophen 1 tab 03/18/22 16:53 Oxycodone /Acetaminophen 5-325mg Tab PO Q16H PRN Pain, Moderate (4-6) Promethazine HCl 25 mg 03/18/22 16:53 Promethazine 25 Mg Rect Supp [place] Q6H PRN Nausea And Vomiting Sodium Chloride 10 ml 03/18/22 16:53 03/21/22 10:00 Sodium Chloride 0.9% 10 Ml Flush Syringe IV 10 ml PRN PRN Administration LINE FLUSH
[2022-03-25] MEDS: ASPIRIN 325 MG TAB PO SCH (10:29)
[2022-03-25] MEDS: cloNIDine 0.1 MG TAB PO SCH ×2 (10:29→17:21)
[2022-03-25] MEDS: NIFEdipine XL 30 MG TAB PO SCH ×2 (10:30→21:13)
[2022-03-25] MEDS: FOLIC ACID 1 MG TAB PO SCH (10:30)
--- NOTE | 2022-03-25 14:05 | Discharge Summary ---
Providers - Providers Date of Admission: 03/18/22 16:56 Date of discharge: 03/25/22 Attending physician: JASPREET LOPEZ 03/18/22 16:56 Occupational Therapy Evaluate and Treat [CONS] Routine Comment: Reason For Exam: Neuro deficits Physical Therapy Evaluation and Treat [CONS] Routine Comment: Reason For Exam: Neuro deficits 03/18/22 16:57 Speech Therapy Evaluation and Treat [CONS] Routine Reason For Exam: swallow eval Primary care physician: BEKA DICK Hospitalization Reason for admission: Left-sided weakness/acute CVA Condition: Fair Pertinent studies: Neuro work-up so far: CT head without contrast :No acute intracranial abnormality, chronic white matter changes noted MRI brain; acute right subcortical infarct CTA neck, and carotid arteries no significant abnormality carotid bifurcation normal cervical internal carotid arteries no significant abnormalities CTA head; no significant abnormality Echocardiogram; LVEF 50 to 55% moderate concentric LVH bubble study does not demonstrate PFO neuro work-up so far Hospital course: EXTR 1-year-old male patient with significant past medical history of hypertension dyslipidemia ongoing tobacco use alcohol use was admitted through emergency room with sudden onset of left-sided weakness patient was evaluated by telemetry neurologist in the ED,, not a candidate for tPA, extensive neuro work-up was requested, patient CT scan CTA neck and head and MRI brain as well as echocardiogram were obtained The findings of which are as mentioned below Patient also received physical therapy occupational therapy and speech therapy Patient has right-sided stroke with manifestation of left-sided hemiplegia. PT OT recommended subacute rehab placement. Case management has set up subacute/SNF placement Today is comfortable no new complaints vital signs stable, Hemodynamically and clinically stable at discharge Discharge diagnosis: -- Acute right subcortical stroke Not a candidate for tPA Continue aspirin and statin PT OT rehabilitation CVA protocol: CT scan head, seizure precautions, aspiration precautions, Check CTA head, CTA neck, echocardiogram DC planning per case management Continue PT and OT, rehab placement pending --left hemiplegia; Physical therapy, Occupational Therapy, rehabilitation -- Hypertensive emergency; blood pressures moderate controlled increase hydralazine to 50 mg 3 times daily Continue other antihypertensives --Dyslipidemia; Low-cholesterol diet, statin -- Noncompliance with medication regimen Patient counseled. Patient acknowledges understanding instructions. -- Nicotine dependence Smoking cessation counseling, supportive care, behavior change counseling, +15 minutes. --Alcohol dependence [facility] protocol: Thiamine, folic acid, multivitamin daily. -- DVT prophylaxis SCD to bilateral lower extremities while in bed --Advance care planning +30 minutes Disease education conducted, care plan discussed, diagnoses discussed, Patient's diagnosis of acute stroke discussed in detail with the patient and with her patient's niece over the phone Treatment plan explained in detail, discharge planning per case management, pending PT OT evaluation Also discussed about the medications, uses and side effects Patient acknowledges understanding and agreement with care plan, +32 minutes. prognosis discussed, patient is full code. --Preventive health care +30 minutes Patient counseled regarding risk factor reduction, abstinence from alcohol and cigarette smoking. Cardiac diet. Compliance with medications diet and follow-up visits Early outpatient follow-up with primary care physician , neurologist Risk reduction with lifestyle changes, exercise as tolerated I spent 30 minutes counseling the patient Patient is hemodynamically and clinically stable at discharge to subacute/SNF placement Stable at discharge Disposition: [facility] Final Discharge Diagnosis (Prints w/discharge instructions): Acute right subcortical stroke. Acute left hemiplegia next. hypertensive emergency improved. Dyslipidemia. Nicotine dependence. Alcohol dependence. Noncompliance with medications Time spent for discharge: 35 minutes Core Measure Documentation - Palliative Care Palliative Care/ Comfort Measures: Not Applicable - Core Measures Any of the following diagnoses?: stroke - Stroke Discharge Requirements Statin for LDL = or >70 mg/dl on DC: Yes Anticoag for atrial fib/atrial flutter: No Reason for no anticoag for AF/F on DC: Not Indicated (No A. fib or a flutter) Antithrombotic for ischemic stroke: Yes Exam - Constitutional Vitals: Temp Pulse Resp BP Pulse Ox 98.0 F 60 20 157/88 97 03/25/22 11:27 03/25/22 13:48 03/25/22 11:27 03/25/22 13:48 03/25/22 12:02 General appearance: Present: no acute distress, well-nourished - EENT Eyes: Present: PERRL, EOM intact - Neck Neck: Present: supple, normal ROM - Respiratory Respiratory effort: normal Respiratory: bilateral: diminished, negative: rales, rhonchi, wheezing - Cardiovascular Rhythm: regular Heart Sounds: Present: S1 & S2 - Extremities Extremities: no ischemia, No edema - Abdominal General gastrointestinal: Present: soft, non-tender, non-distended, normal bowel sounds - Integumentary Integumentary: Present: clear, warm - Musculoskeletal Musculoskeletal: strength equal bilaterally, left sided weakness - Psychiatric Psychiatric: appropriate mood/affect, cooperative - Neurologic Neurologic: other (Acute CVA with left hemiplegia) Plan Activity: advance as tolerated, fall precautions Diet: other (Cardiac diet) Special Instructions: physical therapy, occupational therapy Additional Instructions: If you have worsening symptoms contact MD or go to the nearest emergency room as needed. Fall precautions, aspiration precautions. CPAP neurologist 1 to 2 weeks Follow up with: BEKA DICK MD [Primary Care Provider] - 7 Days LILA BROWN MD [Staff Physician] - 7 Days Prescriptions: Aspirin 325 mg PO QDAY #30 tablet cloNIDine [Catapres] 0.1 mg PO Q8H #90 tablet bisacodyL [Dulcolax suppos] 10 mg [place] QDAY PRN #30 supp.rect PRN Reason: Constipation Folic Acid [Folvite] 1 mg PO QDAY #30 tablet Hydralazine HCl 50 mg PO Q8H #90 AtorvaSTATin [Lipitor] 40 mg PO QHS #30 tablet oxyCODONE /ACETAMINOPHEN [Percocet 5/325 mg] 1 tab PO BID PRN #14 tablet PRN Reason: Pain, Moderate (4-6) NIFEdipine XL [Procardia Xl] 30 mg PO Q12HR #60 tablet
[2022-03-25 21:11] VITALS: BP 177/98
[2022-03-25] MEDS: ENOXAPARIN 40 MG/0.4 ML INJ SUB-Q SCH (21:12)
== END 2022-03-25 21:45 | DRG 65 ==
LOC: ED 10:54 → 3A 16:56
PROVIDERS: ADMIT Internal Medicine; ATTEND Internal Medicine
DX: I63.9 Cerebral infarction, unspecified (principal); I16.1 Hypertensive emergency; G81.94 Hemiplegia, unspecified affecting left nondominant side; F17.210 Nicotine dependence, cigarettes, uncomplicated; I10 Essential (primary) hypertension; F10.20 Alcohol dependence, uncomplicated; Z20.822 Contact with and (suspected) exposure to COVID-19; Z91.14 Patient's other noncompliance with medication regimen; Z82.49 Family history of ischemic heart disease and other diseases of the circulatory system
CPT/HCPCS: 36415; 70450; 70496; 70498; 70551; 71046; 80048; 80053; 80061; 80307; 81001; 83690; 83735; 84132; 84484; 85027; 85610; 85730; 93005; 93306; G0378; J3490; C8929; J0360; J1650; Q9967; U0003

== ENCOUNTER 2022-07-11 08:28 | Inpatient (IN) | payer OTHER ==
[2022-07-11] MEDS ORDERED: ONDANSETRON 4 MG/2 ML INJ IV ONE (08:47)
[2022-07-11] MEDS ORDERED: MORPHINE 4 MG/1 ML INJ IV ONE ×2 (08:47→12:15)
--- NOTE | 2022-07-11 08:51 | Emergency Department Report ---
ED N/V/D HPI - General Chief complaint: Nausea/Vomiting/Diarrhea Stated complaint: ABD PAIN Time Seen by Provider: 07/11/22 08:41 Source: patient, EMS, old records reviewed Mode of arrival: Stretcher Limitations: No Limitations - History of Present Illness Initial comments: 61 YO Male with Nicotine Dependence, HTN, ETOH Dependence, and CVA in March with r esidual left-sided weakness presents to the hospital complaints of abdominal pain, nausea, and vomiting since 2 AM. Patient complains of 10/10 cramping periumbilical/mid abdomen pain. Pain is constant. Worse with palpation. No alleviating factors. Patient denies hematemesis or fever. No diarrhea reported. Patient states he is compliant with his medications last dose yesterday. Patient denies previous abdominal surgeries - Related Data Previous Rx's Medication Instructions Recorded Last Taken Type Aspirin 325 mg PO QDAY #30 tablet 03/25/22 Unknown Rx AtorvaSTATin [Lipitor] 40 mg PO QHS #30 tablet 03/25/22 Unknown Rx Folic Acid [Folvite] 1 mg PO QDAY #30 tablet 03/25/22 Unknown Rx Hydralazine HCl 50 mg PO Q8H #90 03/25/22 Unknown Rx NIFEdipine XL [Procardia Xl] 30 mg PO Q12HR #60 tablet 03/25/22 Unknown Rx bisacodyL [Dulcolax suppos] 10 mg [place] QDAY PRN #30 supp.rect 03/25/22 Unknown Rx cloNIDine [Catapres] 0.1 mg PO Q8H #90 tablet 03/25/22 Unknown Rx oxyCODONE /ACETAMINOPHEN [Percocet 1 tab PO BID PRN #14 tablet 03/25/22 Unknown Rx 5/325 mg] Allergies Allergy/AdvReac Type Severity Reaction Status Date / Time No Known Allergies Allergy Verified 03/18/22 10:58 ED Review of Systems ROS: Stated complaint: ABD PAIN Other details as noted in HPI Comment: All other systems reviewed and negative ED Past Medical Hx - Past Medical History Hx Hypertension: Yes - Social History Smoking Status: Current Every Day Smoker - Medications Home Medications: Home Medications Medication Instructions Recorded Confirmed Last Taken Type Aspirin 325 mg PO QDAY #30 tablet 03/25/22 Unknown Rx AtorvaSTATin [Lipitor] 40 mg PO QHS #30 tablet 03/25/22 Unknown Rx Folic Acid [Folvite] 1 mg PO QDAY #30 tablet 03/25/22 Unknown Rx Hydralazine HCl 50 mg PO Q8H #90 03/25/22 Unknown Rx NIFEdipine XL [Procardia Xl] 30 mg PO Q12HR #60 tablet 03/25/22 Unknown Rx bisacodyL [Dulcolax suppos] 10 mg [place] QDAY PRN #30 supp.rect 03/25/22 Unknown Rx cloNIDine [Catapres] 0.1 mg PO Q8H #90 tablet 03/25/22 Unknown Rx oxyCODONE /ACETAMINOPHEN [Percocet 1 tab PO BID PRN #14 tablet 03/25/22 Unknown Rx 5/325 mg] ED Physical Exam - General Limitations: No Limitations - Other Other exam information: General: Moderate distress secondary pain Head: Atraumatic Eyes: normal appearance ENT: Moist mucous membranes Neck: Normal appearance, no midline tenderness Chest: Clear to auscultation bilaterally CV: Regular rate and rhythm Abdomen: Soft, normal bowel sounds, generalized tenderness greatest in the mid abdomen, nondistended, no rebound or guarding Back: Normal inspection Extremity: Normal inspection, full range of motion Neuro: Alert O x 3, no facial asymmetry, speech clear, no gross motor sensory deficit Psych: Appropriate behavior Skin: No rash ED Course Vital Signs 07/11/22 07/11/22 07/11/22 08:28 08:49 09:00 Temperature 98.3 F Pulse Rate 90 83 Respiratory 20 18 10 L Rate Blood Pressure 180/119 [Left] O2 Sat by Pulse 100 98 Oximetry - Reevaluation(s) Reevaluation #1: 07/11/22 12:23 Patient continues to have significant pain. IV Dilaudid ordered. NG tube ordered - Consultations Consultation #1: 07/11/22 12:[address] Minaya general surgeon. Recommends n.p.o., NG tube, will evaluate 07/11/22 12:23 ED Medical Decision Making - Lab Data Result diagrams: 07/11/22 09:03 07/11/22 09:03 Lab Results 07/11/22 07/11/22 07/11/22 Range/Units 09:03 09:03 09:03 WBC 16.7 H (4.5-11.0) K/mm3 RBC 5.05 H (3.65-5.03) M/mm3 Hgb 13.2 (11.8-15.2) gm/dl Hct 42.5 (35.5-45.6) % MCV 84 (84-94) fl MCH 26 L (28-32) pg MCHC 31 L (32-34) % RDW 16.2 H (13.2-15.2) % Plt Count 151 (140-440) K/mm3 Lymph % (Auto) 9.0 L (13.4-35.0) % Bertie % (Auto) 4.8 (0.0-7.3) % Eos % (Auto) 0.1 (0.0-4.3) % Baso % (Auto) 0.8 (0.0-1.8) % Lymph # (Auto) 1.5 (1.2-5.4) K/mm3 Bertie # (Auto) 0.8 (0.0-0.8) K/mm3 Eos # (Auto) 0.0 (0.0-0.4) K/mm3 Baso # (Auto) 0.1 (0.0-0.1) K/mm3 Seg Neutrophils % 85.3 H (40.0-70.0) % Seg Neutrophils # 14.3 H (1.8-7.7) K/mm3 Sodium 140 (137-145) mmol/L Potassium 3.4 L (3.6-5.0) mmol/L Chloride 103.7 (98-107) mmol/L Carbon Dioxide 25 (22-30) mmol/L Anion Gap 15 mmol/L BUN 20 (9-20) mg/dL Creatinine 1.1 (0.8-1.3) mg/dL Estimated GFR > 60 ml/min BUN/Creatinine Ratio 18 % Glucose 151 H (75-100) mg/dL Calcium 10.1 (8.4-10.2) mg/dL Magnesium 1.60 L (1.7-2.3) mg/dL Total Bilirubin 0.40 (0.1-1.2) mg/dL AST 16 (5-40) units/L ALT 15 (7-56) units/L Alkaline Phosphatase 110 (35-129) units/L Total Protein 7.6 (6.3-8.2) g/dL Albumin 4.8 (3.9-5) g/dL Albumin/Globulin Ratio 1.7 % Lipase 14 (13-60) units/L - EKG Data -: EKG Interpreted by In EKG shows normal: sinus rhythm, ST-T waves (No STEMI) Rate: normal (83) - Radiology Data Radiology results: report reviewed CT abdomen pelvis w con INDICATION / CLINICAL INFORMATION: abd pain, n,v. TECHNIQUE: Axial CT images were obtained through the abdomen and pelvis after 100 cc of Omni [address] scans at this location are performed using CT dose reduction for ALARA by means of automated exposure control. COMPARISON: None available. FINDINGS: LOWER CHEST: Prominence of the interstitium. No focal airspace consolidation. Cardiac enlargement. Trace pericardial fluid. LIVER: Bilobar hepatic hypodensities, likely reflecting cysts. GALLBLADDER/BILIARY TREE: No significant abnormality PANCREAS: No significant abnormality SPLEEN: No significant abnormality ADRENALS: No significant abnormality RIGHT KIDNEY / URETER: Small probable cyst at the lower pole. No acute findings. No hydronephrosis. LEFT KIDNEY / URETER: No significant abnormality URINARY BLADDER: No significant abnormality REPRODUCTIVE ORGANS: No significant abnormality STOMACH / BOWEL: The small bowel is dilated and fluid-filled. There is transition to normal caliber distal small bowel in the right abdomen (series 2 image 90). Of note, there is adjacent area of focal luminal narrowing in the more proximal small bowel, best seen on series 2 image 81 and series 601 image 31. The intervening small bowel is significantly inflamed with mesenteric edema and trace fluid. There is no pneumatosis. Colon is decompressed. Normal appendix. LYMPH NODES: No significant adenopathy. VASCULATURE: Moderate atherosclerotic calcification. The distal aorta is aneurysmal, measuring 3.1 cm (series 2 image 110). 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 No acute findings. OTHER: Small volume free fluid in the pelvis. No free air. SKELETAL SYSTEM: No acute osseous findings. IMPRESSION: 1. Small bowel obstruction with 2 adjacent areas of focal luminal narrowing in the right abdomen. The intervening small bowel is significantly inflamed with mesenteric edema/fluid. These findings raise concern for closed loop obstruction. There is no pneumatosis or pneumoperitoneum. Surgical consultation is recommended. 2. No other acute findings. 3. Aneurysmal dilatation of the distal aorta and proximal common iliac arteries without acute abnormality. 4. Other chronic and incidental findings as above. - Medical Decision Making 61-year-old male presents to the hospital abdominal pain. CT work-up reveals closed-loop small bowel obstruction. Case was discussed with surgeon DR Minaya. IV magnesium potassium ordered preoperative fluids ordered. NPO. Pain medications, nausea meds, banana bag, and IV fluids ordered. IV Pitocin IV magnesium also ordered for electrolyte replacement Critical Care Time: No Critical care attestation.: If time is entered above; I have spent that time in minutes in the direct care of this critically ill patient, excluding procedure time. ED Disposition Clinical Impression: SBO (small bowel obstruction), Chronic hypertension, History of alcohol abuse, Hypomagnesemia, Hypokalemia Disposition: ADMITTED INPATIENT Is pt being admited?: Yes Condition: Stable Instructions: Hypertension (ED) Time of Disposition: 12:24 (DR saleem/hosp)
[2022-07-11 09:30] LABS: Basophils # (Auto) 0.1 K/mm3 (0.0-0.1); Basophils % (Auto) 0.8 % (0.0-1.8); Eosinophils % (Auto) 0.1 % (0.0-4.3); Hematocrit 42.5 % (35.5-45.6); Hemoglobin 13.2 gm/dl (11.8-15.2); Lymphocytes # (Auto) 1.5 K/mm3 (1.2-5.4); Mean Corpuscular HGB Conc 31 % (32-34); Mean Corpuscular Volume 84 fl (84-94); Monocytes # (Auto) 0.8 K/mm3 (0.0-0.8); Monocytes % (Auto) 4.8 % (0.0-7.3); Platelet Count 151 K/mm3 (140-440); Red Blood Count 5.05 M/mm3 (3.65-5.03); Red Cell Distribution Width 16.2 % (13.2-15.2)
[2022-07-11] MEDS ORDERED: THIAMINE 100 MG, FOLIC ACID 1 MG, MULTIPLE VITAMIN INJ, ADULT 10 ML in SODIUM CHLORIDE ... IV ONE (09:30)
[2022-07-11 09:53] LABS: Alanine Aminotransferase 15 units/L (7-56); Albumin 4.8 g/dL (3.9-5); BUN/Creatinine Ratio 18; Blood Urea Nitrogen 20 mg/dL (9-20); Calcium 10.1 mg/dL (8.4-10.2); Hemolysis Index 5
--- NOTE | 2022-07-11 10:38 | Cat Scan Report ---
CT abdomen pelvis w con INDICATION / CLINICAL INFORMATION: abd pain, n,v. TECHNIQUE: Axial CT images were obtained through the abdomen and pelvis after 100 cc of Omni 350 IV c ontrast. All CT scans at this location are performed using CT dose reduction for ALARA by means of a utomated exposure control. COMPARISON: None available. FINDINGS: LOWER CHEST: Prominence of the interstitium. No focal airspace consolidation. Cardiac enlargement. Tr moiz pericardial fluid. LIVER: Bilobar hepatic hypodensities, likely reflecting cysts. GALLBLADDER/BILIARY TREE: No significant abnormality PANCREAS: No significant abnormality SPLEEN: No significant abnormality ADRENALS: No significant abnormality RIGHT KIDNEY / URETER: Small probable cyst at the lower pole. No acute findings. No hydronephrosis. LEFT KIDNEY / URETER: No significant abnormality URINARY BLADDER: No significant abnormality REPRODUCTIVE ORGANS: No significant abnormality STOMACH / BOWEL: The small bowel is dilated and fluid-filled. There is transition to normal caliber d istal small bowel in the right abdomen (series 2 image 90). Of note, there is adjacent area of focal luminal narrowing in the more proximal small bowel, best seen on series 2 image 81 and series 601 sarahi ge 31. The intervening small bowel is significantly inflamed with mesenteric edema and trace fluid. T here is no pneumatosis. Colon is decompressed. Normal appendix. LYMPH NODES: No significant adenopathy. VASCULATURE: Moderate atherosclerotic calcification. The distal aorta is aneurysmal, measuring 3.1 cm (series 2 image 110). There is also aneurysmal dilatation of the proximal common iliac arteries bila terally, measuring 2.1 cm on the right and 1.7 cm on the left. No acute findings. OTHER: Small volume free fluid in the pelvis. No free air. SKELETAL SYSTEM: No acute osseous findings. IMPRESSION: 1. Small bowel obstruction with 2 adjacent areas of focal luminal narrowing in the right abdomen. The intervening small bowel is significantly inflamed with mesenteric edema/fluid. These findings raise concern for closed loop obstruction. There is no pneumatosis or pneumoperitoneum. Surgical consultati on is recommended. 2. No other acute findings. 3. Aneurysmal dilatation of the distal aorta and proximal common iliac arteries without acute abnorma lity. 4. Other chronic and incidental findings as above. Signer Name: Bryn Anders MD Signed: 07/11/2022 10:33 AM Workstation Name: [id number]
[2022-07-11] MEDS ORDERED: MAGNESIUM SULFATE 2 GM/50 ML BAG IV ONE (10:56)
--- NOTE | 2022-07-11 10:59 | Electrocardiograph Report ---
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
[2022-07-11] MEDS ORDERED: LIDOCAINE VISCOUS 2% 15 ML ORAL LIQD PO ONE (12:17)
[2022-07-11] MEDS ORDERED: SODIUM CHLORIDE 0.9% 1000 ML 1,000 ML IV ONE (12:22)
[2022-07-11] MEDS ORDERED: HYDROmorphone 1 MG/1 ML INJ IV ONE (12:22)
[2022-07-11] MEDS ORDERED: ONDANSETRON 4 MG/2 ML INJ IV PRN ×2 (12:24→21:33)
[2022-07-11] MEDS ORDERED: ACETAMINOPHEN 650 MG RECT SUPP PR PRN (12:25)
[2022-07-11 13:09] LABS: Mucus,Urine 1+ /HPF
[2022-07-11 13:37] LABS: Color,Urine Yellow (Yellow)
[2022-07-11] MEDS: POTASSIUM CHLORIDE 10 MEQ 10 MEQ/100 ML BAG IV SCH ×2 (13:47→14:50)
--- NOTE | 2022-07-11 13:47 | XRay Report ---
ABDOMEN 1 VIEW 07/11/2022 1:29 PM INDICATION / CLINICAL INFORMATION: NG tube placement verification. COMPARISON: None available. FINDINGS: TUBES / LINES: There is a nasogastric tube with the tip overlying the gastric body and the proximal s idehole well below the gastroesophageal junction. BOWEL GAS PATTERN: There are several minimally dilated gas-filled loops of small bowel in the left mi d abdomen. Gas and stool is scattered throughout the right and transverse colon. No mass effect. FREE AIR / EXTRALUMINAL GAS: None. ADDITIONAL FINDINGS: There is contrast in the urinary bladder. IMPRESSION: Nasogastric tube overlies the gastric body. Signer Name: Justin Paulino MD Signed: 07/11/2022 1:43 PM Workstation Name: [id number]
[2022-07-11] MEDS: MORPHINE 2 MG/1 ML INJ IV PRN ×2 (14:51→20:53)
[2022-07-11] MEDS ORDERED: MORPHINE 2 MG/1 ML INJ IV ONE (17:12)
--- NOTE | 2022-07-11 17:32 | Consultation ---
History of Present Illness Consult date: 07/11/22 Reason for consult: abdominal pain Requesting physician: CAMRON VILLAFUERTE - History of present illness History of present illness: 61 YO Male with Nicotine Dependence, HTN, ETOH Dependence, and CVA in March with residual left-sided weakness presents to the hospital complaints of abdominal pain, nausea, and vomiting since 2 AM. Patient complains of 10/10 cramping periumbilical/mid abdomen pain. Pain is constant. Worse with palpation. No alleviating factors. Patient denies hematemesis or fever. No diarrhea reported. Patient states he is compliant with his medications last dose yesterday. Patient denies previous abdominal surgeries. CT of abdo with sbo and possible closed loop obstruction. Pt bp 200/125. Admit with ivf, hospitalist to address htn. Place ng tube reasses in am if pain and sbo not improved will do laprascopic exploraiton. Medications and Allergies Allergies Allergy/AdvReac Type Severity Reaction Status Date / Time No Known Allergies Allergy Verified 03/18/22 10:58 Home Medications Medication Instructions Recorded Confirmed Last Taken Type Aspirin 325 mg PO QDAY #30 tablet 03/25/22 Unknown Rx AtorvaSTATin [Lipitor] 40 mg PO QHS #30 tablet 03/25/22 Unknown Rx Folic Acid [Folvite] 1 mg PO QDAY #30 tablet 03/25/22 Unknown Rx Hydralazine HCl 50 mg PO Q8H #90 03/25/22 Unknown Rx NIFEdipine XL [Procardia Xl] 30 mg PO Q12HR #60 tablet 03/25/22 Unknown Rx bisacodyL [Dulcolax suppos] 10 mg [place] QDAY PRN #30 supp.rect 03/25/22 Unknown Rx cloNIDine [Catapres] 0.1 mg PO Q8H #90 tablet 03/25/22 Unknown Rx oxyCODONE /ACETAMINOPHEN [Percocet 1 tab PO BID PRN #14 tablet 03/25/22 Unknown Rx 5/325 mg] Active Meds: Active Medications Acetaminophen (Acetaminophen 650 Mg Rect Supp) 650 mg TX Q4H PRN PRN Reason: Pain MILD(1-3)/Fever >100.5/FERNANDEZ Morphine Sulfate (Morphine 2 Mg/1 Ml Inj) 2 mg IV Q4H PRN PRN Reason: Pain, Moderate (4-6) Last Admin: 07/11/22 14:51 Dose: 2 mg Ondansetron HCl (Ondansetron 4 Mg/2 Ml Inj) 4 mg IV Q8H PRN PRN Reason: Nausea And Vomiting Sodium Chloride (Sodium Chloride 0.9% 10 Ml Flush Syringe) 10 ml IV BID KAMLA Sodium Chloride (Sodium Chloride 0.9% 10 Ml Flush Syringe) 10 ml IV PRN PRN PRN Reason: LINE FLUSH Exam Vital Signs Temp Pulse Resp BP Pulse Ox 98.3 F 90 20 180/119 100 07/11/22 08:28 07/11/22 08:28 07/11/22 08:28 07/11/22 08:28 07/11/22 08:28 - General physical appearance Positive: well developed, moderate distress - Eyes Positive: PERRL - Neck Positive: no masses, no bruits, trachea midline - Respiratory Positive: normal expansion - Cardiovascular Rhythm: regular - Extremities Extremities: no ischemia, No edema - Abdomen Abdomen: Present: tender, distended. Absent: soft, masses, rebound, guarding, rigid, surgical scars - Neurologic Neurologic: alert and oriented to time, place and person, CN II-XII intact, other (left hemiparesis) Results - Labs 07/11/22 09:03 07/11/22 09:03 Abnormal lab results 07/11/22 07/11/22 07/11/22 Range/Units 09:03 09:03 09:03 WBC 16.7 H (4.5-11.0) K/mm3 RBC 5.05 H (3.65-5.03) M/mm3 MCH 26 L (28-32) pg MCHC 31 L (32-34) % RDW 16.2 H (13.2-15.2) % Lymph % (Auto) 9.0 L (13.4-35.0) % Seg Neutrophils % 85.3 H (40.0-70.0) % Seg Neutrophils # 14.3 H (1.8-7.7) K/mm3 Potassium 3.4 L (3.6-5.0) mmol/L Glucose 151 H (75-100) mg/dL Magnesium 1.60 L (1.7-2.3) mg/dL Diabetes panel 07/11/22 Range/Units 09:03 Sodium 140 (137-145) mmol/L Potassium 3.4 L (3.6-5.0) mmol/L Chloride 103.7 (98-107) mmol/L Carbon Dioxide 25 (22-30) mmol/L BUN 20 (9-20) mg/dL Creatinine 1.1 (0.8-1.3) mg/dL Glucose 151 H (75-100) mg/dL Calcium 10.1 (8.4-10.2) mg/dL AST 16 (5-40) units/L ALT 15 (7-56) units/L Alkaline Phosphatase 110 (35-129) units/L Total Protein 7.6 (6.3-8.2) g/dL Albumin 4.8 (3.9-5) g/dL Calcium panel 07/11/22 Range/Units 09:03 Calcium 10.1 (8.4-10.2) mg/dL Albumin 4.8 (3.9-5) g/dL Pituitary panel 07/11/22 Range/Units 09:03 Sodium 140 (137-145) mmol/L Potassium 3.4 L (3.6-5.0) mmol/L Chloride 103.7 (98-107) mmol/L Carbon Dioxide 25 (22-30) mmol/L BUN 20 (9-20) mg/dL Creatinine 1.1 (0.8-1.3) mg/dL Glucose 151 H (75-100) mg/dL Calcium 10.1 (8.4-10.2) mg/dL Adrenal panel 07/11/22 Range/Units 09:03 Sodium 140 (137-145) mmol/L Potassium 3.4 L (3.6-5.0) mmol/L Chloride 103.7 (98-107) mmol/L Carbon Dioxide 25 (22-30) mmol/L BUN 20 (9-20) mg/dL Creatinine 1.1 (0.8-1.3) mg/dL Glucose 151 H (75-100) mg/dL Calcium 10.1 (8.4-10.2) mg/dL Total Bilirubin 0.40 (0.1-1.2) mg/dL AST 16 (5-40) units/L ALT 15 (7-56) units/L Alkaline Phosphatase 110 (35-129) units/L Total Protein 7.6 (6.3-8.2) g/dL Albumin 4.8 (3.9-5) g/dL Assessment and Plan Pt with sbo and poorly controlled htn. Ng tube in place, cont iv fluids and if pain and sbo obstruction persist thru the night will do laprascopic sxplora itomadison the am.
[2022-07-11] MEDS ORDERED: hydrALAZINE 20 MG/1 ML INJ IV PRN (18:21)
[2022-07-11] MEDS ORDERED: hydrALAZINE 20 MG/1 ML INJ IV ONE (18:21)
[2022-07-11] MEDS ORDERED: cloNIDine TTS 0.3 MG/24 HR PATCH TD SCH (18:40)
[2022-07-11] MEDS ORDERED: ACETAMINOPHEN 325 MG TAB PO PRN (21:33)
--- NOTE | 2022-07-11 21:35 | History and Physical Report ---
History of Present Illness Date of examination: 07/11/22 Date of admission: 07/11/22 12:25 Chief complaint: Nausea vomiting and abdominal pain since 2 AM History of present illness: 61-year-old man with history of hypertension and hyperlipidemia and no past surgical history comes in for nausea vomiting and abdominal pain since since 2 AM. Pain is 10 on a scale of 1-10. No previous surgical history. 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 Pain is intermittent and sharp. Pain is about 10 on a scale of 1-10. No exacerbating or relieving factors. No fever or chills. Had last bowel movement yesterday. Nausea and vomiting. Vomited about 4-6 times. - Past Medical History-- Hypertension: Yes -- CVA --Surgical history -none - Social History --Smoking Status: Current Every Day Smoker Family history --Htn Review of Systems ROS: Constitutional no weight loss or weight gain no fever or chills HEENT no sore throat no post nasal drip no diplopia Neck no neck stiffness no lymph gland enlargement Chest and lungs no shortness of breath cough or wheezing CVS no chest pain no diaphoresis no palpitations GI severe abdominal pain and nausea and vomiting since 2 AM Genitourinary system no dysuria no flank pain Musculoskeletal system no muscle pains no joint pains [employer] no syncope no seizures Skin no rash no itching Psychiatric no depression no homicidal or suicidal tendencies Hematologic no lymphedema or bruising Endocrine no polydipsia no polyuria no cold intolerance no heat intolerance Medications and Allergies Allergies Allergy/AdvReac Type Severity Reaction Status Date / Time No Known Allergies Allergy Verified 03/18/22 10:58 Home Medications Medication Instructions Recorded Confirmed Last Taken Type Aspirin 325 mg PO QDAY #30 tablet 03/25/22 07/12/22 Unknown Rx AtorvaSTATin [Lipitor] 40 mg PO QHS #30 tablet 03/25/22 07/12/22 Unknown Rx Folic Acid [Folvite] 1 mg PO QDAY #30 tablet 03/25/22 07/12/22 Unknown Rx Hydralazine HCl 50 mg PO Q8H #90 03/25/22 07/12/22 Unknown Rx NIFEdipine XL [Procardia Xl] 30 mg PO Q12HR #60 tablet 03/25/22 07/12/22 Unknown Rx bisacodyL [Dulcolax suppos] 10 mg [place] QDAY PRN #30 supp.rect 03/25/22 07/12/22 Unknown Rx cloNIDine [Catapres] 0.1 mg PO Q8H #90 tablet 03/25/22 07/12/22 Unknown Rx oxyCODONE /ACETAMINOPHEN [Percocet 1 tab PO BID PRN #14 tablet 03/25/22 07/12/22 Unknown Rx 5/325 mg] Active Meds: Active Medications Acetaminophen (Acetaminophen 650 Mg Rect Supp) 650 mg [place] Q4H PRN PRN Reason: Pain MILD(1-3)/Fever >100.5/FERNANDEZ Clonidine HCl (Clonidine Tts 0.3 Mg/24 Hr Patch) 0.3 mg TD Th KAMLA Last Admin: 07/11/22 20:40 Dose: 0.3 mg Hydralazine HCl (Hydralazine 20 Mg/1 Ml Inj) 10 mg IV Q3H PRN PRN Reason: Blood Pressure Morphine Sulfate (Morphine 2 Mg/1 Ml Inj) 2 mg IV Q4H PRN PRN Reason: Pain, Moderate (4-6) Last Admin: 07/11/22 20:53 Dose: 2 mg Ondansetron HCl (Ondansetron 4 Mg/2 Ml Inj) 4 mg IV Q8H PRN PRN Reason: Nausea And Vomiting Last Admin: 07/11/22 20:53 Dose: 4 mg Sodium Chloride (Sodium Chloride 0.9% 10 Ml Flush Syringe) 10 ml IV BID [facility] Sodium Chloride (Sodium Chloride 0.9% 10 Ml Flush Syringe) 10 ml IV PRN PRN PRN Reason: LINE FLUSH Exam - Constitutional Vitals: Temp Pulse Resp BP Pulse Ox 98.2 F 88 16 150/89 96 07/11/22 20:21 07/11/22 20:40 07/11/22 20:21 07/11/22 20:40 07/11/22 20:21 General appearance: Present: mild distress, well-nourished - EENT Eyes: Present: PERRL ENT: hearing intact, clear oral mucosa - Neck Neck: Present: supple, normal ROM - Respiratory Respiratory effort: normal Respiratory: bilateral: CTA - Cardiovascular Heart rate: 78 Rhythm: regular Heart Sounds: Present: S1 & S2. Absent: rub, click - Extremities Extremities: pulses symmetrical, No edema Peripheral Pulses: within normal limits - Abdominal General gastrointestinal: Present: tender, distended, absent bowel sounds Localized gastrointestinal: tender: diffuse Male genitourinary: Present: normal - Integumentary Integumentary: Present: clear, warm, dry - Musculoskeletal Musculoskeletal: gait normal, strength equal bilaterally - Psychiatric Psychiatric: appropriate mood/affect, intact judgment & insight - Neurologic Neurologic: CNII-XII intact, moves all extremities Results - Labs CBC & Chem 7: 07/11/22 09:03 07/11/22 09:03 Labs: Laboratory Last Values WBC 16.7 K/mm3 (4.5-11.0) H 07/11/22 09:03 RBC 5.05 M/mm3 (3.65-5.03) H 07/11/22 09:03 Hgb 13.2 gm/dl (11.8-15.2) 07/11/22 09:03 Hct 42.5 % (35.5-45.6) 07/11/22 09:03 MCV 84 fl (84-94) 07/11/22 09:03 MCH 26 pg (28-32) L 07/11/22 09:03 MCHC 31 % (32-34) L 07/11/22 09:03 RDW 16.2 % (13.2-15.2) H 07/11/22 09:03 Plt Count 151 K/mm3 (140-440) 07/11/22 09:03 Lymph % (Auto) 9.0 % (13.4-35.0) L 07/11/22 09:03 [place] % (Auto) 4.8 % (0.0-7.3) 07/11/22 09:03 Eos % (Auto) 0.1 % (0.0-4.3) 07/11/22 09:03 Baso % (Auto) 0.8 % (0.0-1.8) 07/11/22 09:03 Lymph # (Auto) 1.5 K/mm3 (1.2-5.4) 07/11/22 09:03 [place] # (Auto) 0.8 K/mm3 (0.0-0.8) 07/11/22 09:03 Eos # (Auto) 0.0 K/mm3 (0.0-0.4) 07/11/22 09:03 Baso # (Auto) 0.1 K/mm3 (0.0-0.1) 07/11/22 09:03 Seg Neutrophils % 85.3 % (40.0-70.0) H 07/11/22 09:03 Seg Neutrophils # 14.3 K/mm3 (1.8-7.7) H 07/11/22 09:03 Sodium 140 mmol/L (137-145) 07/11/22 09:03 Potassium 3.4 mmol/L (3.6-5.0) L 07/11/22 09:03 Chloride 103.7 mmol/L (98-107) 07/11/22 09:03 Carbon Dioxide 25 mmol/L (22-30) 07/11/22 09:03 Anion Gap 15 mmol/L 07/11/22 09:03 BUN 20 mg/dL (9-20) 07/11/22 09:03 Creatinine 1.1 mg/dL (0.8-1.3) 07/11/22 09:03 Estimated GFR > 60 ml/min 07/11/22 09:03 BUN/Creatinine Ratio 18 % 07/11/22 09:03 Glucose 151 mg/dL (75-100) H 07/11/22 09:03 Calcium 10.1 mg/dL (8.4-10.2) 07/11/22 09:03 Magnesium 1.60 mg/dL (1.7-2.3) L 07/11/22 09:03 Total Bilirubin 0.40 mg/dL (0.1-1.2) 07/11/22 09:03 AST 16 units/L (5-40) 07/11/22 09:03 ALT 15 units/L (7-56) 07/11/22 09:03 Alkaline Phosphatase 110 units/L (35-129) 07/11/22 09:03 Total Protein 7.6 g/dL (6.3-8.2) 07/11/22 09:03 Albumin 4.8 g/dL (3.9-5) 07/11/22 09:03 Albumin/Globulin Ratio 1.7 % 07/11/22 09:03 Lipase 14 units/L (13-60) 07/11/22 09:03 Urine Color Yellow (Yellow) 07/11/22 11:40 Urine Turbidity Cloudy (Clear) 07/11/22 11:40 Specific [place] (Man) 1.010 (1.003-1.030) 07/11/22 11:40 Ur Protein (Man) Negative mg/dL (Negative) 07/11/22 11:40 Ur Ketones (Man) Negative (Negative) 07/11/22 11:40 Ur Nitrite (Man) Negative (Negative) 07/11/22 11:40 Ur Reducing Substances Not Reportable 07/11/22 11:40 Urine Bilirubin (Man) Negative (Negative) 07/11/22 11:40 Urine Ictotest Not Reportable 07/11/22 11:40 Leukocyte Esterase (Man) Negative (Negative) 07/11/22 11:40 Urine WBC (Auto) 2.0 /HPF (0.0-6.0) 07/11/22 11:40 Urine RBC (Auto) 1.0 /HPF (0.0-6.0) 07/11/22 11:40 U Epithel Cells (Auto) 1.0 /HPF (0-13.0) 07/11/22 11:40 Urine RBC (Manual) Negative (Negative) 07/11/22 11:40 Urine Mucus 1+ /HPF 07/11/22 11:40 Short CBC 07/11/22 Range/Units 09:03 WBC 16.7 H (4.5-11.0) K/mm3 Hgb 13.2 (11.8-15.2) gm/dl Hct 42.5 (35.5-45.6) % Plt Count 151 (140-440) K/mm3 BMP 07/11/22 09:03 Sodium 140 Potassium 3.4 L Chloride 103.7 Carbon Dioxide 25 BUN 20 Creatinine 1.1 Glucose 151 H Calcium 10.1 Liver Function 07/11/22 Range/Units 09:03 Total Bilirubin 0.40 (0.1-1.2) mg/dL AST 16 (5-40) units/L ALT 15 (7-56) units/L Alkaline Phosphatase 110 (35-129) units/L Albumin 4.8 (3.9-5) g/dL Urine 07/11/22 Range/Units 11:40 Urine Color Yellow (Yellow) Assessment and Plan Advance Directives: Yes (Full code) VTE prophylaxis?: Chemical Plan of care discussed with patient/family: Yes - Patient Problems (1) SIRS (systemic inflammatory response syndrome) Current Visit: Yes Status: Acute Plan to address problem: Patient has high WBC count No focus of infection Empiric antibiotics (2) SBO (small bowel obstruction) Current Visit: Yes Status: Acute Plan to address problem: Surgery consulted NG tube in place NG tube to low Gomco suction No previous surgeries Adhesions and scar tissue unlikely (3) Hypertensive emergency Current Visit: Yes Status: Acute Plan to address problem: Patient initiated on IV hydralazine and Catapres patch Responding (4) Hypokalemia Current Visit: Yes Status: Acute Plan to address problem: Supplemented. (5) Hyperglycemia Current Visit: Yes Status: Acute Plan to address problem: Coverage for now Check hemoglobin A1c (6) Hypomagnesemia Current Visit: Yes Status: Acute Plan to address problem: Supplemented (7) Advance care planning Current Visit: Yes Status: Acute Plan to address problem: Disease education conducted, care plan discussed, diagnosis and prognosis discussed. Patient is full code. Patient acknowledges understanding of care plan. +30 minutes. (8) DVT prophylaxis Current Visit: Yes Status: Acute Plan to address problem: On heparin and GI prophylaxis
[2022-07-11] MEDS ORDERED: SODIUM CHLORIDE 0.9% 1000 ML 1,000 ML IV SCH (21:45)
[2022-07-11] MEDS: FAMOTIDINE 20 MG/2 ML INJ IV SCH (22:54)
[2022-07-11] MEDS: HYDROmorphone 0.5 MG/0.5 ML INJ IV PRN (22:55)
[2022-07-12] MEDS: MORPHINE 2 MG/1 ML INJ IV PRN (04:14)
[2022-07-12] MEDS ORDERED: MAGNESIUM SULFATE 2 GM/50 ML BAG IV ONE (08:00)
[2022-07-12] MEDS: FAMOTIDINE 20 MG/2 ML INJ IV SCH ×3 (08:37→21:02)
[2022-07-12] MEDS: CEFEPIME/NS 2 GM/100 ML 2 GM/100 ML BAG IV SCH ×2 (08:37→20:56)
[2022-07-12] MEDS: HYDROmorphone 0.5 MG/0.5 ML INJ IV PRN (08:45)
[2022-07-12] MEDS: POTASSIUM CHLORIDE 10 MEQ 10 MEQ/100 ML BAG IV SCH (09:26)
[2022-07-12 10:06] LABS: Basophils % (Auto) 0.1 % (0.0-1.8); Lymphocytes # (Auto) 1.9 K/mm3 (1.2-5.4); Lymphocytes % (Auto) 12.9 % (13.4-35.0); Mean Corpuscular HGB Conc 31 % (32-34); Mean Corpuscular Volume 85 fl (84-94); Monocytes % (Auto) 7.2 % (0.0-7.3); Platelet Count 160 K/mm3 (140-440); Red Blood Count 5.24 M/mm3 (3.65-5.03); Red Cell Distribution Width 16.7 % (13.2-15.2)
[2022-07-12 10:12] LABS: Hematocrit 44.3 % (35.5-45.6); Hemoglobin 13.6 gm/dl (11.8-15.2)
[2022-07-12 10:19] LABS: Alanine Aminotransferase 10 units/L (7-56); Albumin 3.9 g/dL (3.9-5); BUN/Creatinine Ratio 22; Blood Urea Nitrogen 22 mg/dL (9-20); Hemolysis Index 10
[2022-07-12] MEDS ORDERED: BUPIVACAINE/PF (0.5%) 5 MG/1 ML 30 ML VIAL INFILTRATI ONE ×2 (10:19→11:43)
[2022-07-12] MEDS ORDERED: LIDOCAINE 1%/EPINEPHRINE 1:100,000 VIAL (20 ML) INFILTRATI ONE ×2 (10:19→11:43)
[2022-07-12] MEDS ORDERED: LIDOCAINE MPF (2%) 20 MG/1 ML VIAL 5 ML ONE (10:50)
[2022-07-12] MEDS ORDERED: propofoL 200 MG/20 ML VIAL IV ONE (10:50)
[2022-07-12] MEDS ORDERED: HYDROmorphone 1 MG/1 ML INJ ONE (10:50)
[2022-07-12] MEDS ORDERED: SUCCINYLCHOLINE CHLORIDE 200 MG/10 ML INJ MDV ONE (10:51)
[2022-07-12] MEDS ORDERED: ROCURONIUM 50 MG/5 ML INJ IV ONE (10:51)
--- NOTE | 2022-07-12 11:05 | Anesthesia Consultation ---
Anesthesia Consult and Med Hx Date of service: 07/12/22 - Airway Anesthetic Teeth Evaluation: Poor (some missing teeth) ROM Head & Neck: Adequate Mental/Hyoid Distance: Adequate Mallampati Class: Class II Intubation Access Assessment: Probably Good - Pre-Operative Health Status ASA Pre-Surgery Classification: ASA3 Proposed Anesthetic Plan: General - Pulmonary Hx Smoking: Yes (1 p/day x 40 years, quit 4 month ago) Hx Asthma: No COPD: No Hx Pneumonia: No - Cardiovascular System Hx Hypertension: Yes Hx Coronary Artery Disease: No (high cholesterol) - Central Nervous System CVA: Yes (presents with left side hemiparesis) - Gastrointestinal Hx Ulcer: No (small bowel obstruction) - Endocrine Hx End Stage Renal Disease: No - Other Systems Hx Alcohol Use: Yes (12 pack/day) Hx Substance Use: No Hx Cancer: No
--- NOTE | 2022-07-12 11:05 | Anesthesia Day of Surgery ---
Anesthesia Day of Surgery - Day of Surgery Patient Examined: Yes Patient H&P Reviewed: Yes Patient is NPO: Yes
[2022-07-12] MEDS ORDERED: ePHEDrine SULFATE 50 MG/1 ML INJ ONE (11:15)
[2022-07-12] MEDS ORDERED: SODIUM CHLORIDE 0.9% IRRIG SOLN 2000 ML IR ONE (11:44)
[2022-07-12] MEDS ORDERED: SODIUM CHLORIDE 0.9% IRR 1,500 ML BOTTLE IR ONE (11:44)
[2022-07-12] MEDS ORDERED: SUGAMMADEX SODIUM 200 MG/2 ML VIAL IV ONE (12:01)
[2022-07-12] MEDS ORDERED: ONDANSETRON 4 MG/2 ML INJ ONE (12:02)
[2022-07-12] MEDS ORDERED: PHENYLEPHRINE/NS 1,000 MCG/10 ML SYRINGE (OR USE) IV ONE (12:03)
[2022-07-12] MEDS ORDERED: GLYCOPYRROLATE 0.4 MG/2 ML INJ ONE (12:03)
[2022-07-12] MEDS ORDERED: SODIUM CHLORIDE 0.9% 1000 ML 1,000 ML ONE (12:03)
[2022-07-12] MEDS ORDERED: NEOSTIGMINE 10MG/10 ML INJ MDV ONE (12:03)
--- NOTE | 2022-07-12 12:07 | Operative Report ---
Operative Report Operative Report: Date of procedure: 07/12/2022 Preop diagnosis: Small bowel obstruction Postop diagnosis: Small bowel obstruction secondary to internal hernia through omentum Procedure: Laparoscopic exploration, lysis of adhesive band in the omentum. Surgeon: Dr. Minaya Cement Truck Loader: Dr. Salinas Anesthesia: General endotracheal anesthesia Estimated blood loss: 100 cc Specimen: None Findings: This patient presented to the emergency room with distended small bowel and a clear transition point. Preoperative evaluation included a CT of the abdomen pelvis. Patient is taken to the OR and under general endotracheal anesthesia timeouts and consents are reviewed and completed. Petty catheter is placed. Abdomen is shaved and then prepped with ChloraPrep. Sterile draping is done. A 3 mm incision is placed in the right upper quadrant a Veress needle was used to insufflate the abdomen with CO2. 2 inches below this a 5 mm Visiport is established through a 5 mm incision. Inspection of the abdomen showed there to be serosanguineous drainage and a clear area of small bowel that was obstructed and maroonish in color. I supraumbilical 5 mm port is established and a 5 mm port is placed in the left lower quadrant. 5 mm 30 degree angled scope is used to direct the case to the umbilical port. Bowel graspers are used and the transition point is located through a rent in the omentum. This is released. Bowel contents immediately is noted to fill the decompressed distal small bowel. The serosanguineous fluid is aspirated. Warm saline irrigation is used. Bowel is observed for several minutes. It appeared to improve in color and began to peristalsis. No bowel resection was felt to be necessary. All ports were then removed and the CO2 is allowed to exit the abdomen. Wounds are closed with 4-0 Monocryl and Dermabond. Patient tolerated the procedure well.
--- NOTE | 2022-07-12 13:40 | Progress Note ---
Assessment and Plan Assessment and plan: #SIRSresolved #Small bowel obstruction secondary to internal hernia through omentum Continue NG tube with low intermittent suction. Continue n.p.o. status. Continue cefepime 2 g daily General surgery consulted; appreciate recs. Status post laparoscopic exploration with lysis of adhesions to omentum Continue analgesics and antiemetics as needed. Continue to monitor. #Hypertensive emergencyresolved\ #Hypertension - home medications: Atorvastatin 40 mg daily, nifedipine 30 mg every 12 hours, p.o. hydralazine 50 mg every 8 hours, clonidine 0.1 mg every 8 hours - current medications: Currently holding as the patient is n.p.o. - SBP goal <160 and DBP goal <90 while inpatient - continue to monitor #History of recent acute ischemic CVA with residual left-sided weakness Currently holding home aspirin 325 mg daily and atorvastatin 40 mg daily. Can be restarted when the patient can tolerate p.o. intake. #Hypomagnesemiaresolved #Hypokalemiaresolved Repleted. #Advanced care planning -Disease education conducted, care plan discussed, diagnoses discussed, prognosis discussed, and patient acknowledges understanding with care plan -Time: +30 min Disposition Plan: Continue medical management Total Time Spent with Patient (Minutes): 45 minutes History Interval history: No acute events overnight. Hospitalist Physical - Constitutional Vitals: Temp Pulse Resp BP Pulse Ox 97.8 F 92 H 13 159/87 96 07/12/22 13:15 07/12/22 13:15 07/12/22 13:15 07/12/22 13:15 07/12/22 13:15 General appearance: Present: mild distress, well-nourished - EENT Eyes: Present: PERRL, EOM intact ENT: hearing intact, clear oral mucosa, dentition normal, other (NG tube in place draining reddishbrownish fluid) - Neck Neck: Present: supple, normal ROM - Respiratory Respiratory effort: normal Respiratory: bilateral: CTA - Cardiovascular Rhythm: regular Heart Sounds: Present: S1 & S2 - Extremities Extremities: no ischemia, pulses intact, pulses symmetrical, No edema, normal temperature, normal color, abnormal (Right-sided weakness secondary to recent acute ischemic CVA) Peripheral Pulses: within normal limits - Abdominal General gastrointestinal: soft, tender, distended (Mildly distended abdomen), normal bowel sounds Localized gastrointestinal: tender: epigastric periumbilical - Integumentary Integumentary: Present: clear, warm, dry - Psychiatric Psychiatric: appropriate mood/affect, memory intact, cooperative - Neurologic Neurologic: CNII-XII intact, other (Residual weakness of left upper extremity secondary to recent acute ischemic CVA) - Allied Health Allied health notes reviewed: nursing Results - Labs CBC & Chem 7: 07/12/22 09:21 07/12/22 09:21 Labs: Laboratory Last Values WBC 14.6 K/mm3 (4.5-11.0) H 07/12/22 09:21 RBC 5.24 M/mm3 (3.65-5.03) H 07/12/22 09:21 Hgb 13.6 gm/dl (11.8-15.2) 07/12/22 09:21 Hct 44.3 % (35.5-45.6) 07/12/22 09:21 MCV 85 fl (84-94) 07/12/22 09:21 MCH 26 pg (28-32) L 07/12/22 09:21 MCHC 31 % (32-34) L 07/12/22 09:21 RDW 16.7 % (13.2-15.2) H 07/12/22 09:21 Plt Count 160 K/mm3 (140-440) 07/12/22 09:21 Lymph % (Auto) 12.9 % (13.4-35.0) L 07/12/22 09:21 [place] % (Auto) 7.2 % (0.0-7.3) 07/12/22 09:21 Eos % (Auto) 0.0 % (0.0-4.3) 07/12/22 09:21 Baso % (Auto) 0.1 % (0.0-1.8) 07/12/22 09:21 Lymph # (Auto) 1.9 K/mm3 (1.2-5.4) 07/12/22 09:21 [place] # (Auto) 1.0 K/mm3 (0.0-0.8) H 07/12/22 09:21 Eos # (Auto) 0.0 K/mm3 (0.0-0.4) 07/12/22 09:21 Baso # (Auto) 0.0 K/mm3 (0.0-0.1) 09/09/22 09:21 Seg Neutrophils % 79.8 % (40.0-70.0) H 07/12/22 09:21 Seg Neutrophils # 11.6 K/mm3 (1.8-7.7) H 07/12/22 09:21 Sodium 139 mmol/L (137-145) 07/12/22 09:21 Potassium 4.4 mmol/L (3.6-5.0) D 07/12/22 09:21 Chloride 105.5 mmol/L (98-107) 07/12/22 09:21 Carbon Dioxide 26 mmol/L (22-30) 07/12/22 09:21 Anion Gap 12 mmol/L 07/12/22 09:21 BUN 22 mg/dL (9-20) H 07/12/22 09:21 Creatinine 1.0 mg/dL (0.8-1.3) 07/12/22 09:21 Estimated GFR > 60 ml/min 07/12/22 09:21 BUN/Creatinine Ratio 22 % 07/12/22 09:21 Glucose 129 mg/dL (75-100) H 07/12/22 09:21 Calcium 9.0 mg/dL (8.4-10.2) 07/12/22 09:21 Magnesium 1.60 mg/dL (1.7-2.3) L 07/11/22 09:03 Total Bilirubin 0.40 mg/dL (0.1-1.2) 07/12/22 09:21 AST 14 units/L (5-40) 07/12/22 09:21 ALT 10 units/L (7-56) 07/12/22 09:21 Alkaline Phosphatase 88 units/L (35-129) 07/12/22 09:21 Total Protein 6.5 g/dL (6.3-8.2) 07/12/22 09:21 Albumin 3.9 g/dL (3.9-5) 07/12/22 09:21 Albumin/Globulin Ratio 1.5 % 07/12/22 09:21 Lipase 14 units/L (13-60) 07/11/22 09:03 Urine Color Yellow (Yellow) 07/11/22 11:40 Urine Turbidity Cloudy (Clear) 07/11/22 11:40 Specific [place] (Man) 1.010 (1.003-1.030) 07/11/22 11:40 Ur Protein (Man) Negative mg/dL (Negative) 07/11/22 11:40 Ur Ketones (Man) Negative (Negative) 07/11/22 11:40 Ur Nitrite (Man) Negative (Negative) 07/11/22 11:40 Ur Reducing Substances Not Reportable 07/11/22 11:40 Urine Bilirubin (Man) Negative (Negative) 07/11/22 11:40 Urine Ictotest Not Reportable 07/11/22 11:40 Leukocyte Esterase (Man) Negative (Negative) 07/11/22 11:40 Urine WBC (Auto) 2.0 /HPF (0.0-6.0) 07/11/22 11:40 Urine RBC (Auto) 1.0 /HPF (0.0-6.0) 07/11/22 11:40 U Epithel Cells (Auto) 1.0 /HPF (0-13.0) 07/11/22 11:40 Urine RBC (Manual) Negative (Negative) 07/11/22 11:40 Urine Mucus 1+ /HPF 07/11/22 11:40 Petty/IV: Voiding Method Urinal Active Medications - Current Medications Current Medications: Generic Name Dose Route Start Last Admin Trade Name Freq PRN Reason Stop Dose Admin Acetaminophen 650 mg 07/11/22 12:25 Acetaminophen 650 Mg Rect Supp [place] Q4H PRN Pain MILD(1-3)/Fever >100.5/FERNANDEZ Acetaminophen 650 mg 07/11/22 21:33 Acetaminophen 325 Mg Tab PO Q4H PRN Pain MILD(1-3)/Fever >100.5/FERNANDEZ Clonidine HCl 0.3 mg 07/11/22 18:40 07/11/22 20:40 Clonidine Tts 0.3 Mg/24 Hr Patch TD 0.3 mg Th KAMLA Administration Famotidine 20 mg 07/11/22 22:00 07/12/22 08:37 Famotidine 20 Mg/2 Ml Inj IV 20 mg BID KAMLA Administration Hydralazine HCl 10 mg 07/11/22 18:21 07/12/22 05:54 Hydralazine 20 Mg/1 Ml Inj IV 10 mg Q3H PRN Administration Blood Pressure Hydromorphone HCl 0.5 mg 07/11/22 21:33 07/12/22 08:45 Hydromorphone 0.5 Mg/0.5 Ml Inj IV 0.5 mg Q3H PRN Administration Pain , Severe (7-10) Sodium Chloride 1,000 mls @ 75 mls/hr 07/11/22 21:45 Nacl 0.9% 1000 Ml IV DIRECT KAMLA Cefepime HCl 2 gm in 100 mls @ 200 mls/hr 07/12/22 08:00 07/12/22 08:37 Cefepime/Ns 2 Gm/100 Ml IV 200 mls/hr Q12H KAMLA Administration Protocol Morphine Sulfate 2 mg 07/11/22 12:25 07/12/22 04:14 Morphine 2 Mg/1 Ml Inj IV 2 mg Q4H PRN Administration Pain, Moderate (4-6) Ondansetron HCl 4 mg 07/11/22 21:33 Ondansetron 4 Mg/2 Ml Inj IV Q8H PRN Nausea And Vomiting Sodium Chloride 10 ml 07/11/22 22:00 07/11/22 22:55 Sodium Chloride 0.9% 10 Ml Flush Syringe IV 10 ml BID KAMLA Administration Sodium Chloride 10 ml 07/11/22 21:33 Sodium Chloride 0.9% 10 Ml Flush Syringe IV PRN PRN LINE FLUSH Nutrition/Malnutrition Assess - Dietary Evaluation Nutrition/Malnutrition Findings: Nutrition Notes Start: 07/12/22 12:03 Freq: Status: Active Protocol: Document 07/12/22 12:03 BJORN (Rec: 07/12/22 12:08 BJORN [id number]) Nutrition Notes Need for Assessment 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 Pt in surgery at this time for hernia reduction and lysis of adhesions. Burn Absent Trauma Absent GI Symptoms Nausea,Vomiting Minimum of two criteria No #1 Nutrition Diagnosis Altered GI function Etiology SBO As Evidenced by Signs and Symptoms pt NPO Is patient on ventilator? No Is Patient Ambulatory and/or Out of Bed No REE-([place]-. [place]-confined to bed) [phone] Calculation Used for Recommendations [place]-St Jeor Additional Notes Pro needs 1-1.2g/k-93g/ day Fluid needs 1ml/kcal Nutrition Intervention Change Diet Order: Diet advancement when medically feasible Goal #1 Improved bowel function Goal #2 Diet advancement to meet nutrient needs Anticipated Discharge Needs: Unable to identify at this time Follow-Up By: 07/14/22 Additional Comments F/U: POC
--- NOTE | 2022-07-12 15:04 | Post Anesthesia Evaluation ---
- Post Anesthesia Evaluation Patient Participated: Yes Airway Patent: Yes Stable Respiratory Function: Yes Nausea/Vomiting: No Temp > 96.8F: Yes Pain Manageable: Yes Adequeate Hydration: Yes Anesthesia Complications: No Block Receding Appropriately: Not Applicable Patient on Ventilator: No
[2022-07-12 16:18] LABS: Basophils % (Auto) 0.2 % (0.0-1.8); Hematocrit 42.4 % (35.5-45.6); Hemoglobin 13.2 gm/dl (11.8-15.2); Lymphocytes # (Auto) 1.6 K/mm3 (1.2-5.4); Lymphocytes % (Auto) 13.6 % (13.4-35.0); Mean Corpuscular HGB Conc 31 % (32-34); Mean Corpuscular Volume 86 fl (84-94); Monocytes # (Auto) 1.1 K/mm3 (0.0-0.8); Monocytes % (Auto) 8.7 % (0.0-7.3); Platelet Count 138 K/mm3 (140-440); Red Blood Count 4.94 M/mm3 (3.65-5.03); Red Cell Distribution Width 16.9 % (13.2-15.2)
[2022-07-12 16:50] LABS: Alanine Aminotransferase 10 units/L (7-56); Albumin 3.7 g/dL (3.9-5); BUN/Creatinine Ratio 23; Blood Urea Nitrogen 23 mg/dL (9-20); Calcium 8.5 mg/dL (8.4-10.2); Hemolysis Index 14
[2022-07-13 07:50] LABS: Basophils % (Auto) 0.6 % (0.0-1.8); Eosinophils % (Auto) 0.1 % (0.0-4.3); Hematocrit 36.4 % (35.5-45.6); Hemoglobin 11.3 gm/dl (11.8-15.2); Lymphocytes # (Auto) 2.1 K/mm3 (1.2-5.4); Lymphocytes % (Auto) 26.6 % (13.4-35.0); Mean Corpuscular HGB Conc 31 % (32-34); Mean Corpuscular Volume 84 fl (84-94); Monocytes # (Auto) 0.8 K/mm3 (0.0-0.8); Platelet Count 124 K/mm3 (140-440); Red Blood Count 4.34 M/mm3 (3.65-5.03); Red Cell Distribution Width 16.3 % (13.2-15.2)
[2022-07-13 08:06] LABS: Alanine Aminotransferase 8 units/L (7-56); Albumin 3.5 g/dL (3.9-5); BUN/Creatinine Ratio 24; Blood Urea Nitrogen 24 mg/dL (9-20); Calcium 8.7 mg/dL (8.4-10.2); Hemolysis Index 1
[2022-07-13] MEDS ORDERED: DEXTROSE 5% IN WATER 1,000 ML IV SCH (09:00)
[2022-07-13] MEDS: CEFEPIME/NS 2 GM/100 ML 2 GM/100 ML BAG IV SCH (09:26)
[2022-07-13] MEDS: FAMOTIDINE 20 MG/2 ML INJ IV SCH ×2 (09:26→21:43)
--- NOTE | 2022-07-13 13:00 | Progress Note ---
Assessment and Plan 61-year-old male status post diagnostic laparoscopy, lysis of adhesions for small bowel obstruction, postop day 1 Plan: 1. DC NGT 2. Start CLD 3. maintenance IVF 4. repeat BMP in am 5. OOB/ambulate 6. DC abx 7. Is/Pulm toilet 8. Transition to oral pain meds 9.May resume home medications 10. Possible dc planning in 24-48 hours if patient continues to show clinical improvement Plan discussed with patient in detail. All questions answered. Thank you, please call with questions or concerns Subjective Date of service: 07/13/22 Narrative: Patient seen and examined. He has no acute complaints. He states that his pain is almost completely resolved. He now only has soreness near his incisions. He has been passing flatus but no bowel movement yet. Afebrile. His NG tube has been clamped since yesterday and he has been tolerating ice chips. Denies nausea or vomiting. Objective Vital Signs - 12hr 07/13/22 04:39 Temperature 99.0 F Pulse Rate 74 Respiratory 20 Rate Blood Pressure 163/84 O2 Sat by Pulse 98 Oximetry - General physical appearance Narrative Exam: Gen.: Awake, alert, oriented x3. No apparent distress ENT: Trachea midline. NG tube clamped. When reconnected to suction, scant output. No lymphadenopathy. No scleral icterus or conjunctival pallor CV: S1, S2 present Respiratory: No audible wheezes Abdomen: Soft, nondistended, nontender. Incisions are clean, dry, intact. No rebound, rigidity, guarding Extremities: No clubbing, cyanosis, edema - Labs 07/13/22 06:22 07/13/22 06:22 Diabetes panel 07/12/22 07/13/22 Range/Units 15:49 06:22 Sodium 139 146 H D (137-145) mmol/L Potassium 4.4 4.4 (3.6-5.0) mmol/L Chloride 107.8 H 111.6 H (98-107) mmol/L Carbon Dioxide 24 26 (22-30) mmol/L BUN 23 H 24 H (9-20) mg/dL Creatinine 1.0 1.0 (0.8-1.3) mg/dL Glucose 120 H 85 (75-100) mg/dL Calcium 8.5 8.7 (8.4-10.2) mg/dL AST 14 15 (5-40) units/L ALT 10 8 (7-56) units/L Alkaline Phosphatase 77 64 (35-129) units/L Total Protein 6.1 L 5.7 L (6.3-8.2) g/dL Albumin 3.7 L 3.5 L (3.9-5) g/dL Calcium panel 07/12/22 07/13/22 Range/Units 15:49 06:22 Calcium 8.5 8.7 (8.4-10.2) mg/dL Albumin 3.7 L 3.5 L (3.9-5) g/dL Pituitary panel 07/12/22 07/13/22 Range/Units 15:49 06:22 Sodium 139 146 H D (137-145) mmol/L Potassium 4.4 4.4 (3.6-5.0) mmol/L Chloride 107.8 H 111.6 H (98-107) mmol/L Carbon Dioxide 24 26 (22-30) mmol/L BUN 23 H 24 H (9-20) mg/dL Creatinine 1.0 1.0 (0.8-1.3) mg/dL Glucose 120 H 85 (75-100) mg/dL Calcium 8.5 8.7 (8.4-10.2) mg/dL Adrenal panel 07/12/22 07/13/22 Range/Units 15:49 06:22 Sodium 139 146 H D (137-145) mmol/L Potassium 4.4 4.4 (3.6-5.0) mmol/L Chloride 107.8 H 111.6 H (98-107) mmol/L Carbon Dioxide 24 26 (22-30) mmol/L BUN 23 H 24 H (9-20) mg/dL Creatinine 1.0 1.0 (0.8-1.3) mg/dL Glucose 120 H 85 (75-100) mg/dL Calcium 8.5 8.7 (8.4-10.2) mg/dL Total Bilirubin 0.30 0.50 (0.1-1.2) mg/dL AST 14 15 (5-40) units/L ALT 10 8 (7-56) units/L Alkaline Phosphatase 77 64 (35-129) units/L Total Protein 6.1 L 5.7 L (6.3-8.2) g/dL Albumin 3.7 L 3.5 L (3.9-5) g/dL
[2022-07-13] MEDS ORDERED: MORPHINE 2 MG/1 ML INJ IV PRN (14:23)
[2022-07-13] MEDS ORDERED: HYDROcodone/ACETAMINOPHEN 5-325 MG TAB PO PRN (14:23)
[2022-07-13] MEDS ORDERED: D5W/0.45% NACL 1,000 ML IV SCH (15:00)
--- NOTE | 2022-07-13 15:00 | Progress Note ---
Assessment and Plan Assessment and plan: #SIRSresolved #Small bowel obstruction secondary to internal hernia through omentum Discontinue NGT and starting full liquid diet. Discontinue abx. General surgery consulted; appreciate recs. Status post laparoscopic exploration with lysis of adhesions to omentum Continue analgesics and antiemetics as needed. Continue to monitor. #Hypertensive emergencyresolved #Hypertension - home medications: Atorvastatin 40 mg daily, nifedipine 30 mg every 12 hours, p.o. 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 #Hypomagnesemiaresolved #Hypokalemiaresolved Repleted. #Advanced care planning -Disease education conducted, care plan discussed, diagnoses discussed, prognosis discussed, and patient acknowledges understanding with care plan -Time: +30 min Disposition Plan: Continue medical management Total Time Spent with Patient (Minutes): 45 min History Interval history: Status post lysis of adhesion causing a small bowel obstruction. Hospitalist Physical - Constitutional Vitals: Temp Pulse Resp BP Pulse Ox 99.0 F 74 20 163/84 98 07/13/22 04:39 07/13/22 04:39 07/13/22 04:39 07/13/22 04:39 07/13/22 04:39 General appearance: Present: mild distress, well-nourished - EENT Eyes: Present: PERRL, EOM intact ENT: hearing intact, clear oral mucosa, dentition normal - Neck Neck: Present: supple, normal ROM - Respiratory Respiratory effort: normal Respiratory: bilateral: CTA - Cardiovascular Rhythm: regular Heart Sounds: Present: S1 & S2 - Extremities Extremities: no ischemia, pulses intact, pulses symmetrical, No edema, normal temperature, normal color Peripheral Pulses: within normal limits - Abdominal General gastrointestinal: soft, non-tender, non-distended, normal bowel sounds - Integumentary Integumentary: Present: clear, warm, dry - Psychiatric Psychiatric: appropriate mood/affect - Neurologic Neurologic: CNII-XII intact, focal deficits (Left upper extremity weakness from prior CVA) - Allied Health Allied health notes reviewed: nursing Results - Labs CBC & Chem 7: 07/13/22 06:22 07/13/22 06:22 Labs: Laboratory Last Values WBC 7.9 K/mm3 (4.5-11.0) 07/13/22 06: RBC 4.34 M/mm3 (3.65-5.03) 07/13/22 06:22 Hgb 11.3 gm/dl (11.8-15.2) L 07/13/22 06:22 Hct 36.4 % (35.5-45.6) D 07/13/22 06:22 MCV 84 fl (84-94) 07/13/22 06:22 MCH 26 pg (28-32) L 07/13/22 06: MCHC 31 % (32-34) L 07/13/22 06: RDW 16.3 % (13.2-15.2) H 07/13/22 06:22 Plt Count 124 K/mm3 (140-440) L 07/13/22 06:22 Lymph % (Auto) 26.6 % (13.4-35.0) 07/13/22 06: [place] % (Auto) 10.0 % (0.0-7.3) H 07/13/22 06:22 Eos % (Auto) 0.1 % (0.0-4.3) 07/13/22 06: Baso % (Auto) 0.6 % (0.0-1.8) 07/13/22 06:22 Lymph # (Auto) 2.1 K/mm3 (1.2-5.4) 07/13/22 06:22 [place] # (Auto) 0.8 K/mm3 (0.0-0.8) 07/13/22 06:22 Eos # (Auto) 0.0 K/mm3 (0.0-0.4) 07/13/22 06:22 Baso # (Auto) 0.0 K/mm3 (0.0-0.1) 07/13/22 06: Seg Neutrophils % 62.7 % (40.0-70.0) 07/13/22 06:22 Seg Neutrophils # 5.0 K/mm3 (1.8-7.7) 07/13/22 06:22 Sodium 146 mmol/L (137-145) H D 07/13/22 06:22 Potassium 4.4 mmol/L (3.6-5.0) 07/13/22 06:22 Chloride 111.6 mmol/L (98-107) H 07/13/22 06:22 Carbon Dioxide 26 mmol/L (22-30) 07/13/22 06:22 Anion Gap 13 mmol/L 07/13/22 06:22 BUN 24 mg/dL (9-20) H 07/13/22 06:22 Creatinine 1.0 mg/dL (0.8-1.3) 07/13/22 06:22 Estimated GFR > 60 ml/min 07/13/22 06:22 BUN/Creatinine Ratio 24 % 07/13/22 06:22 Glucose 85 mg/dL (75-100) 07/13/22 06:22 Calcium 8.7 mg/dL (8.4-10.2) 07/13/22 06:22 Magnesium 1.60 mg/dL (1.7-2.3) L 07/11/22 09:03 Total Bilirubin 0.50 mg/dL (0.1-1.2) 07/13/22 06:22 AST 15 units/L (5-40) 07/13/22 06:22 ALT 8 units/L (7-56) 07/13/22 06:22 Alkaline Phosphatase 64 units/L (35-129) 07/13/22 06:22 Total Protein 5.7 g/dL (6.3-8.2) L 07/13/22 06:22 Albumin 3.5 g/dL (3.9-5) L 07/13/22 06:22 Albumin/Globulin Ratio 1.6 % 07/13/22 06:22 Lipase 14 units/L (13-60) 07/11/22 09:03 Urine Color Yellow (Yellow) 07/11/22 11:40 Urine Turbidity Cloudy (Clear) 07/11/22 11:40 Specific [place] (Man) 1.010 (1.003-1.030) 07/11/22 11:40 Ur Protein (Man) Negative mg/dL (Negative) 07/11/22 11:40 Ur Ketones (Man) Negative (Negative) 07/11/22 11:40 Ur Nitrite (Man) Negative (Negative) 07/11/22 11:40 Ur Reducing Substances Not Reportable 07/11/22 11:40 Urine Bilirubin (Man) Negative (Negative) 07/11/22 11:40 Urine Ictotest Not Reportable 07/11/22 11:40 Leukocyte Esterase (Man) Negative (Negative) 07/11/22 11:40 Urine WBC (Auto) 2.0 /HPF (0.0-6.0) 07/11/22 11:40 Urine RBC (Auto) 1.0 /HPF (0.0-6.0) 07/11/22 11:40 U Epithel Cells (Auto) 1.0 /HPF (0-13.0) 07/11/22 11:40 Urine RBC (Manual) Negative (Negative) 07/11/22 11:40 Urine Mucus 1+ /HPF 07/11/22 11:40 Petty/IV: Voiding Method Urinal Active Medications - Current Medications Current Medications: Generic Name Dose Route Start Last Admin Trade Name Freq PRN Reason Stop Dose Admin Acetaminophen 650 mg 07/11/22 12:25 Acetaminophen 650 Mg Rect Supp AR Q4H PRN Pain MILD(1-3)/Fever >100.5/FERNANDEZ Acetaminophen 650 mg 07/11/22 21:33 Acetaminophen 325 Mg Tab PO Q4H PRN Pain MILD(1-3)/Fever >100.5/FERNANDEZ Hydrocodone Bitart/Acetaminophen 1 each 07/13/22 14:23 Hydrocodone/Acetaminophen 5-325 Mg Tab PO Q6H PRN Pain, Moderate (4-6) Clonidine HCl 0.3 mg 07/11/22 18:40 07/11/22 20:40 Clonidine Tts 0.3 Mg/24 Hr Patch TD 0.3 mg Th KAMLA Administration Famotidine 20 mg 07/11/22 22:00 07/13/22 09:26 Famotidine 20 Mg/2 Ml Inj IV 20 mg BID KAMLA Administration Hydralazine HCl 10 mg 07/11/22 18:21 07/12/22 05:54 Hydralazine 20 Mg/1 Ml Inj IV 10 mg Q3H PRN Administration Blood Pressure Dextrose/Sodium Chloride 1,000 mls @ 75 mls/hr 07/13/22 15:00 D5/0.45ns IV DIRECT KAMLA Morphine Sulfate 2 mg 07/13/22 14:23 Morphine 2 Mg/1 Ml Inj IV Q4H PRN Pain , Severe (7-10) Ondansetron HCl 4 mg 07/11/22 21:33 Ondansetron 4 Mg/2 Ml Inj IV Q8H PRN Nausea And Vomiting Sodium Chloride 10 ml 07/11/22 22:00 07/13/22 09:26 Sodium Chloride 0.9% 10 Ml Flush Syringe IV 10 ml BID KAMLA Administration Sodium Chloride 10 ml 07/11/22 21:33 Sodium Chloride 0.9% 10 Ml Flush Syringe IV PRN PRN LINE FLUSH Nutrition/Malnutrition Assess - Dietary Evaluation Nutrition/Malnutrition Findings: Nutrition Notes Start: 07/12/22 12:03 Freq: Status: Active Protocol: Document 07/12/22 12:03 BJORN (Rec: 07/12/22 12:08 [facility] [id number]) Nutrition 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 Pt in surgery at this time for hernia reduction and lysis of adhesions. Burn Absent Trauma Absent GI Symptoms Nausea,Vomiting Minimum of two criteria No #1 Nutrition Diagnosis Altered GI function Etiology SBO As Evidenced by Signs and Symptoms pt NPO Is patient on ventilator? No Is Patient Ambulatory and/or Out of Bed No REE-([facility]-confined to bed) 0146.864 Calculation Used for Recommendations [facility] Additional Notes Pro needs 1-1.2g/k-93g/ day Fluid needs 1ml/kcal Nutrition Intervention Change Diet Order: Diet advancement when medically feasible Goal #1 Improved bowel function Goal #2 Diet advancement to meet nutrient needs Anticipated Discharge Needs: Unable to identify at this time Follow-Up By: 07/14/22 Additional Comments F/U: POC
[2022-07-13] MEDS ORDERED: NON-FORMULARY EACH (Hydralazine Hcl [Hydralazine Hcl] 50 MG Tablet) PO SCH (15:15)
[2022-07-13] MEDS: hydrALAZINE 25 MG TAB PO SCH ×2 (16:49→21:42)
[2022-07-13] MEDS: NIFEdipine XL 30 MG TAB PO SCH (21:42)
[2022-07-13] MEDS ORDERED: PHENOL 1.4% 177 ML BOTTLE MM PRN (21:49)
[2022-07-14] MEDS: hydrALAZINE 25 MG TAB PO SCH (05:52)
[2022-07-14 07:27] LABS: Basophils # (Auto) 0.1 K/mm3 (0.0-0.1); Basophils % (Auto) 1.3 % (0.0-1.8); Eosinophils # (Auto) 0.1 K/mm3 (0.0-0.4); Eosinophils % (Auto) 1.4 % (0.0-4.3); Hematocrit 31.6 % (35.5-45.6); Hemoglobin 10.1 gm/dl (11.8-15.2); Lymphocytes # (Auto) 2.9 K/mm3 (1.2-5.4); Lymphocytes % (Auto) 37.8 % (13.4-35.0); Mean Corpuscular HGB Conc 32 % (32-34); Mean Corpuscular Volume 83 fl (84-94); Monocytes # (Auto) 0.7 K/mm3 (0.0-0.8); Monocytes % (Auto) 9.5 % (0.0-7.3); Platelet Count 108 K/mm3 (140-440); Red Blood Count 3.79 M/mm3 (3.65-5.03)
[2022-07-14 07:41] LABS: Alanine Aminotransferase 9 units/L (7-56); Albumin 3.3 g/dL (3.9-5); BUN/Creatinine Ratio 20; Blood Urea Nitrogen 16 mg/dL (9-20); Calcium 8.6 mg/dL (8.4-10.2); Hemolysis Index 4
[2022-07-14] MEDS: NIFEdipine XL 30 MG TAB PO SCH (09:12)
[2022-07-14] MEDS: FAMOTIDINE 20 MG/2 ML INJ IV SCH (09:12)
--- NOTE | 2022-07-14 09:26 | Discharge Summary ---
Providers - Providers Date of Admission: 07/11/22 12:25 Date of discharge: 07/14/22 Attending physician: LAYA GALVAN MD 07/11/22 12:11 Consult to Physician [CONS] Urgent Comment: Consulting Provider: JR MA Physician Instructions: Reason For Exam: sbo Primary care physician: JUAN JOSE TONY Hospitalization Reason for admission: Closed-loop small bowel obstruction Condition: Stable Pertinent studies: Reviewed. Procedures: Laparoscopic exploration with lysis of adhesion to omentum Hospital course: Patient is a 61-year-old male past medical history of hypertension, prior alcohol dependence, nicotine dependence, and recent acute ischemic CVA (March 2022) with residual left-sided weakness who presented to the ED with complaints of severe abdominal pain, nausea, and vomiting that had started approximately 2 AM on the day of presentation. Patient described his pain as 10/10 with cramping periumbilical/mid abdominal pain that is constant and worsens with palpation. Patient denied any alleviating factors, hematemesis, fever, chills, diarrhea, or sick contacts. In the ED, the patient was found to be hemodynamically stable with a blood pressure of 180/119. Patient's labs are also remarkable for potassium 3.4 and WBC 16.7. Patient underwent CT abdomen and pelvis with contrast revealing a closed-loop small bowel obstruction, and general surgery was consulted for further management. Patient had NG tube placed with low intermittent suction, and analgesics were initiated. Patient underwent laparoscopic exploration with lysis of adhesions to his omentum through an internal hernia. The patient tolerated that procedure well, and endorses resolution of his abdominal pain. Patient's NG tube has been discontinued, the patient is tolerating p.o. intake. Patient will follow up with general surgery in 10 to 14 days in the outpatient setting. Patient is medically clear for discharge. Disposition: 01 HOME / SELF CARE / HOMELESS Final Discharge Diagnosis (Prints w/discharge instructions): SIRS, small bowel obstruction secondary to internal hernia through omentum status post lysis of adhesion, hypertensive emergency, hypertension, history of recent acute ischemic CVA with residual left-sided weakness, hypomagnesemia, hypokalemia, tobacco dependence Time spent for discharge: 45 min Core Measure Documentation - Palliative Care Palliative Care/ Comfort Measures: Not Applicable - Core Measures Any of the following diagnoses?: history only Exam - Constitutional Vitals: Temp Pulse Resp BP Pulse Ox 98.3 F 57 L 16 121/65 95 07/14/22 04:35 07/14/22 04:35 07/14/22 04:35 07/14/22 04:35 07/14/22 04:35 General appearance: Present: no acute distress, well-nourished - EENT Eyes: Present: PERRL, EOM intact ENT: hearing intact, clear oral mucosa, dentition normal - Neck Neck: Present: supple, normal ROM - Respiratory Respiratory effort: normal Respiratory: bilateral: CTA - Cardiovascular Rhythm: regular Heart Sounds: Present: S1 & S2 - Extremities Extremities: no ischemia, pulses intact, pulses symmetrical, No edema, normal temperature, normal color Peripheral Pulses: within normal limits - Abdominal General gastrointestinal: Present: soft, non-tender, non-distended, normal bowel sounds Male genitourinary: Present: deferred - Rectal Rectal Exam: deferred - Integumentary Integumentary: Present: clear, warm, dry - Musculoskeletal Musculoskeletal: left sided weakness (Left-sided weakness secondary to recent acute ischemic CVA) - Psychiatric Psychiatric: appropriate mood/affect, intact judgment & insight, memory intact, cooperative - Neurologic Neurologic: CNII-XII intact - Allied Health Allied health notes reviewed: nursing Plan Activity: advance as tolerated Diet: low salt Additional Instructions: Patient is a 61-year-old male past medical history of hypertension, prior alcohol dependence, nicotine dependence, and recent acute ischemic CVA (March 2022) with residual left-sided weakness who presented to the ED with complaints of severe abdominal pain, nausea, and vomiting that had started approximately 2 AM on the day of presentation. Patient described his pain as 10/10 with cramping periumbilical/mid abdominal pain that is constant and worsens with palpation. Patient denied any alleviating factors, hemateme sis, fever, chills, diarrhea, or sick contacts. In the ED, the patient was found to be hemodynamically stable with a blood pressure of 180/119. Patient's labs are also remarkable for potassium 3.4 and WBC 16.7. Patient underwent CT abdomen and pelvis with contrast revealing a closed-loop small bowel obstruction, and general surgery was consulted for further management. Patient had NG tube placed with low intermittent suction, and analgesics were initiated. Patient underwent laparoscopic exploration with lysis of adhesions to his omentum through an internal hernia. The patient tolerated that procedure well, and endorses resolution of his abdominal pain. Patient's NG tube has been discontinued, the patient is tolerating p.o. intake. Patient will follow up with general surgery in 10 to 14 days in the outpatient setting. Patient is medically clear for discharge. Care Plan Goals: Patient is medically clear for discharge. Assessment: Patient is a 61-year-old male past medical history of hypertension, prior alcohol dependence, nicotine dependence, and recent acute ischemic CVA (March 2022) with residual left-sided weakness who presented to the ED with complaints of severe abdominal pain, nausea, and vomiting that had started approximately 2 AM on the day of presentation. Patient described his pain as 10/10 with cramping periumbilical/mid abdominal pain that is constant and worsens with palpation. Patient denied any alleviating factors, hematemesis, fever, chills, diarrhea, or sick contacts. In the ED, the patient was found to be hemodynamically stable with a blood pressure of 180/119. Patient's labs are also remarkable for potassium 3.4 and WBC 16.7. Patient underwent CT abdomen and pelvis with contrast revealing a closed-loop small bowel obstruction, and general surgery was consulted for further management. Patient had NG tube placed with low intermittent suction, and analgesics were initiated. Patient underwent laparoscopic exploration with lysis of adhesions to his omentum through an internal hernia. The patient tolerated that procedure well, and endorses resolution of his abdominal pain. Patient's NG tube has been discontinued, the patient is tolerating p.o. intake. Patient will follow up with general surgery in 10 to 14 days in the outpatient setting. Patient is medically clear for discharge. Follow up with: JUAN JOSE TONY MD [Primary Care Provider] - 7 Days JR MA MD [Staff Physician] - 14 Days Forms: Work/School Release Form Prescriptions: HYDROcodone/APAP 5-325 [[place] 5-325 mg TAB] 1 each PO Q6H PRN #12 tablet PRN Reason: Pain, Moderate (4-6)
[2022-07-14] MEDS ORDERED: ASPIRIN 325 MG TAB PO SCH (10:00)
--- NOTE | 2022-07-14 10:21 | Progress Note ---
Assessment and Plan 61 yo man with hx of stroke and left sided weakness, POD 2 s/p dx lap with DEREK for SBO, doing well, had an uneventful inpatient recovery. ok for discharge today. we will see in general surgery clinic in 1-2 weeks post op visit with Dr Minaya. Subjective Date of service: 07/14/22 Narrative: doing well, pain well controlled, he was able to eat and tolerate food. having bowel function. no nausea Objective Vital Signs - 12hr 07/13/22 07/14/22 07/14/22 23:43 02:22 04:35 Temperature 98.2 F 98.3 F Pulse Rate 68 57 L Respiratory 16 16 Rate Blood Pressure 114/71 121/65 [Left] O2 Sat by Pulse 98 100 95 Oximetry - General physical appearance well developed, other (in no distress) - Respiratory normal respiratory effort - Abdomen soft (non distended, non tender, incisions healing well) - Neurologic other (residual left sided weakness from prior stroke) - Labs 07/14/22 06:47 07/14/22 06:47 Diabetes panel 07/14/22 Range/Units 06:47 Sodium 141 (137-145) mmol/L Potassium 3.6 (3.6-5.0) mmol/L Chloride 105.9 (98-107) mmol/L Carbon Dioxide 26 (22-30) mmol/L BUN 16 (9-20) mg/dL Creatinine 0.8 (0.8-1.3) mg/dL Glucose 91 (75-100) mg/dL Calcium 8.6 (8.4-10.2) mg/dL AST 28 (5-40) units/L ALT 9 (7-56) units/L Alkaline Phosphatase 56 (35-129) units/L Total Protein 5.2 L (6.3-8.2) g/dL Albumin 3.3 L (3.9-5) g/dL Calcium panel 07/14/22 Range/Units 06:47 Calcium 8.6 (8.4-10.2) mg/dL Albumin 3.3 L (3.9-5) g/dL Pituitary panel 07/14/22 Range/Units 06:47 Sodium 141 (137-145) mmol/L Potassium 3.6 (3.6-5.0) mmol/L Chloride 105.9 (98-107) mmol/L Carbon Dioxide 26 (22-30) mmol/L BUN 16 (9-20) mg/dL Creatinine 0.8 (0.8-1.3) mg/dL Glucose 91 (75-100) mg/dL Calcium 8.6 (8.4-10.2) mg/dL Adrenal panel 07/14/22 Range/Units 06:47 Sodium 141 (137-145) mmol/L Potassium 3.6 (3.6-5.0) mmol/L Chloride 105.9 (98-107) mmol/L Carbon Dioxide 26 (22-30) mmol/L BUN 16 (9-20) mg/dL Creatinine 0.8 (0.8-1.3) mg/dL Glucose 91 (75-100) mg/dL Calcium 8.6 (8.4-10.2) mg/dL Total Bilirubin 0.70 (0.1-1.2) mg/dL AST 28 (5-40) units/L ALT 9 (7-56) units/L Alkaline Phosphatase 56 (35-129) units/L Total Protein 5.2 L (6.3-8.2) g/dL Albumin 3.3 L (3.9-5) g/dL
[2022-07-14 11:05] VITALS: BP 99/56
== END 2022-07-14 12:26 | disposition home or self-care (01) | DRG 336 ==
LOC: ED 08:28 → 3A 12:25
PROVIDERS: ADMIT Internal Medicine; ATTEND Student in an Organized Health Care Education/Training Program
PROC: 0DNU4ZZ Release Omentum, Percutaneous Endoscopic Approach (ICD-10-PCS; principal; 2022-07-12)
DX: K46.0 Unspecified abdominal hernia with obstruction, without gangrene (principal); I16.1 Hypertensive emergency; I69.354 Hemiplegia and hemiparesis following cerebral infarction affecting left non-dominant side; I10 Essential (primary) hypertension; E87.6 Hypokalemia; E83.42 Hypomagnesemia; F17.200 Nicotine dependence, unspecified, uncomplicated; E78.5 Hyperlipidemia, unspecified; Z82.49 Family history of ischemic heart disease and other diseases of the circulatory system; Z71.6 Tobacco abuse counseling
CPT/HCPCS: 36415; 74018; 74177; 80053; 81001; 83690; 83735; 85025; 93005; 96365; 96366; 96375; 96376; 99285; G0378; J1815; J3490; J7070; J0330; J0360; J0692; J1170; J2270; J2370; J2405; J2704; J2710; J3411; J3475; J3480; J7030; Q9967